=== PATIENT | female | born 1945 | race Caucasian/White ===

== ENCOUNTER 2016-11-08 22:30 | Inpatient (IN) | payer MEDICARE ==
[~2016-11-08] VITALS: Ht 160 cm; Wt 44.5 kg
[~2016-11-08 22:30] MED LIST: ADVIL200 MG PO; ASPIRIN EC81 M1 PO; DYAZIDE 37.5/251 CAP PO; FLORAJEN3 CAPS460 MG PO; IPRAT-ALBUT 0.5-3 ML UPD; LEVAQUIN500 MG PO; LISINOPRIL2.5 MG; LISINOPRIL2.5 MG PO; MIRALAX17 GM PO; MUCINEX600 MG PO; SYMBICORT 16010.2 GM INH
[2016-11-08 23:36] LABS: BASOPHILS 0.2 % (0.0-2.0); EOSINOPHILS 2.6 % (0-7); HEMATOCRIT 38.4 % (36.0-48.0); HEMOGLOBIN 12.5 g/dL (12-16); IMMATURE GRANULOCYTES 0.3 % (0-5); LYMPHOCYTES 16.8 % (15-50); MCH 30.2 pg (26.0-34.0); MCHC 32.6 g/dL (31.0-37.0); MCV 92.8 fL (80.0-100.0); MEAN PLATELET VOLUME 11.1 fL (7.4-10.4); MONOCYTES 4.1 % (2-11); RBC 4.14 10x6/uL (4.00-5.40); RDW 16.2 % (11.5-14.5); WBC 11.2 10x3/uL (4.8-10.8)
[2016-11-08 23:37] LABS: PLATELET COUNT 350 10x3/uL (130-400)
[2016-11-09] LABS: ALBUMIN 3.2 g/dL (3.4-5.0); ANION GAP 15.3 mmol/L (8-16); BILIRUBIN - TOTAL 0.8 mg/dL (0.2-1.3); CALCIUM 8.9 mg/dL (8.5-10.1); CARBON DIOXIDE 25.6 mmol/L (21.0-32.0); CREATININE - SERUM 0.8 mg/dL (0.6-1.3); POTASSIUM - SERUM 3.9 mmol/L (3.5-5.1); TROPONIN-I 0.033 ng/mL (0.000-0.060)
[2016-11-09 00:30] LABS: APPEARANCE CLEAR (CLEAR); BILIRUBIN NEGATIVE (NEGATIVE); COLOR YELLOW (YELLOW); GLUCOSE NEGATIVE (NEGATIVE); KETONE NEGATIVE (NEGATIVE); LEUKOCYTE ESTERASE TRACE (NEGATIVE); NITRITE NEGATIVE (NEGATIVE); PROTEIN NEGATIVE (NEGATIVE); UROBILINOGEN NORMAL (NORMAL)
[2016-11-09 00:43] LABS: BACTERIA FEW /hpf (NONE SEEN); EPITHELIAL CELLS RARE /hpf (0-5); RED CELLS - URINE RARE /hpf (0-5); WHITE CELLS - URINE RARE /hpf (0-5)
[2016-11-09 07:30] VITALS: BP 112/74; BMI 17.7
[2016-11-09 07:54] VITALS: BP 149/94
--- NOTE | 2016-11-09 08:00 | NUR ---
PATIENT GIVEN BREAKFAST TRAY. SHE IS AWAKE AND ALERT, WITHOUT EVIDENCE OF SOB. O2 WORN PER NC. ALTMAN CATHETER PATENT TO BEDISDE DRAINAGE. REQUESTS COFFEE. REPORTED POC TO HER.
--- NOTE | 2016-11-09 09:45 | NUR ---
PATIENT IS SITTING UP IN HER BED. SHE HAS EATEN HER BREAKFAST AND IS WITHOUT COMPLAINTS. FACIAL TISSUE PROVIDED. 1000CC OF CLEAR YELLOW URINE EMPTIED FROM THE COLLECTION BAG.
[2016-11-09 10:55] VITALS: BP 112/74
--- NOTE | 2016-11-09 11:20 | NUR ---
REPORT CALLED TO ROBERT HORTA ON MED 2. PATIENT UNDERSTANDS THAT SHE IS TRANSFERRING TO THE MEDICAL FLOOR. SHE IS CURRENTLY WITHOUT SOB, NO COMPLAINTS OF ANY KIND. IVF INFUSING PER ORDERS. INFUSING BAG SENT WITH HER. BELONGINGS SENT ALONG WELL. TRANSFERRED IN , ACCOMPANIED BY TECH.
--- NOTE | 2016-11-09 12:00 | NUR ---
PATIENT CAME TO ROOM AT 2108, PATIENT IS ALERT AND ORIENTED X3, LUNGS HAVE RUBS IN UPPER LOBES, PATIENT HAS ALTMAN CATH WITH CLEAR YELLOW URINE DRAINING. IV SITE IS IN RIGHT F/A, PATIENT IS ON 2 1/2 L/M PER NC. PATIENT PRESENTS CALM AND SHE IS ABLE TO MAKE NEEDS KNOWN.
--- NOTE | 2016-11-09 13:30 | NUR ---
PATIENT RECEIVED IV LASIX AND SHE IS VOIDING MORE NOW.
[2016-11-09 13:32] LABS: BASOPHILS 0.1 % (0.0-2.0); EOSINOPHILS 0.1 % (0-7); HEMATOCRIT 36.4 % (36.0-48.0); HEMOGLOBIN 11.6 g/dL (12-16); IMMATURE GRANULOCYTES 0.3 % (0-5); LYMPHOCYTES 12.3 % (15-50); MCH 29.7 pg (26.0-34.0); MCHC 31.9 g/dL (31.0-37.0); MCV 93.3 fL (80.0-100.0); MEAN PLATELET VOLUME 11.3 fL (7.4-10.4); MONOCYTES 3.6 % (2-11); NEUTROPHILS 83.6 % (40-80); PLATELET COUNT 321 10x3/uL (130-400); RDW 16.1 % (11.5-14.5)
[2016-11-09 14:26] VITALS: BP 110/98; BMI 17.7
--- NOTE | 2016-11-09 15:30 | NUR ---
PATIENT'S IV SITE IN RIGHT HAND BLEW WE WERE ATTEMPTING TO PUSH SOLUMEDROL, ASKED PATRICK DIRECTOR OF MAINTENANCE IF SHE WILL RESTART IV, D/C'D OLD DRE SINGH INTACT.
[2016-11-09 15:35] VITALS: BP 104/75
--- NOTE | 2016-11-09 16:50 | NUR ---
PATRICK ABLE TO RESITE IV IT IS NOW IN LEFT UPPER ARM.
[2016-11-09 20:00] VITALS: BP 126/81
--- NOTE | 2016-11-09 20:30 | NUR ---
RECEIVED IN BED ELEVATED 50 DEGREES FOR CONFORT. SAID SHE CAN NOT SLEEP BECAUSE OF MEDICATIONS "MAKE ME SHAKE INSIDE." SEE ASSESSMENT FLOW SHEET FOR FURTHER DETAILS. WILL CONTINUE TO MONITOR.
[2016-11-10] VITALS: BP 118/77
[2016-11-10] MEDS ORDERED: PROAIR HFA8.5 GM INH (02:58)
[2016-11-10] MEDS ORDERED: LISINOPRIL2.5 MG PO (03:05)
[2016-11-10] MEDS ORDERED: DYAZIDE 37.5/251 CAP PO (03:06)
[2016-11-10 05:17] LABS: BASOPHILS 0 % (0.0-2.0); EOSINOPHILS 0 % (0-7); HEMOGLOBIN 10.4 g/dL (12-16); IMMATURE GRANULOCYTES 0.2 % (0-5); LYMPHOCYTES 4.5 % (15-50); MCH 29.8 pg (26.0-34.0); MCHC 32.5 g/dL (31.0-37.0); MCV 91.7 fL (80.0-100.0); MEAN PLATELET VOLUME 11.2 fL (7.4-10.4); MONOCYTES 2.3 % (2-11); PLATELET COUNT 295 10x3/uL (130-400); RBC 3.49 10x6/uL (4.00-5.40); RDW 15.9 % (11.5-14.5)
[2016-11-10 05:24] LABS: WBC 11.2 10x3/uL (4.8-10.8)
[2016-11-10 05:40] LABS: ALBUMIN 3.1 g/dL (3.4-5.0); ANION GAP 14.7 mmol/L (8-16); BILIRUBIN - TOTAL 1.48 mg/dL (0.2-1.3); CALCIUM 8.2 mg/dL (8.5-10.1); CARBON DIOXIDE 28.9 mmol/L (21.0-32.0); POTASSIUM - SERUM 3.6 mmol/L (3.5-5.1); PROTEIN - SERUM 6.6 g/dL (6.4-8.2)
[2016-11-10 06:28] VITALS: BP 120/75
--- NOTE | 2016-11-10 07:30 | NUR ---
DOWN FOR CHEST XRAY VIA WHEELCHAIR.
[2016-11-10 08:00] VITALS: BP 98/73
[2016-11-10 10:35] VITALS: Ht 160 cm; Wt 44.5 kg
--- NOTE | 2016-11-10 11:00 | NUR ---
MEDS ADMINISTERED WITHOUT DIFFICULTY PER ORDERS. LAWRENCE BACK HURTS FROM LAYING IN THE BED. LAWRENCE HAS NOT SLEPT IN 3 DAYS. SPOKE WITH NURSE PRACTIONER AND ORDERS RECEIVED.
[2016-11-10 11:46] VITALS: BP 110/69
--- NOTE | 2016-11-10 13:00 | NUR ---
SCD'S ON BILATERAL LE
[2016-11-10 16:00] VITALS: BP 110/56
--- NOTE | 2016-11-10 16:20 | NUR ---
C/O BACK PAIN 11/28. TYLENOL PRN ADMINISTERED PER ORDERS. INFORMED PATIENT ALSO HAS SOMETHING TO HELP HER SLEEP TONIGHT. VERBALIZED UNDERSTANDING.
--- NOTE | 2016-11-10 17:19 | NUR ---
PAIN REASSESSED AT 10/28. SLIGHT RELIEF FROM PRN TYLENOL.
[2016-11-10 20:00] VITALS: BP 117/84
--- NOTE | 2016-11-10 20:30 | NUR ---
RECEIVED REPORT AND CARE ASSUMED. LYING IN BED RESTING QUIETLY. DENIES ANY NEEDS OR DISCOMFORT. SEE ASSESSMENT FOR DETAILS. HS MEDS TAKEN WITHOUT DIFFICULTY. WILL CONTINUE TO MONITOR.
[2016-11-11] VITALS: BP 120/87
[2016-11-11 04:48] LABS: BASOPHILS 0 % (0.0-2.0); EOSINOPHILS 0 % (0-7); HEMOGLOBIN 10.5 g/dL (12-16); IMMATURE GRANULOCYTES 0.2 % (0-5); LYMPHOCYTES 4.7 % (15-50); MCH 29.2 pg (26.0-34.0); MCHC 31.8 g/dL (31.0-37.0); MCV 91.9 fL (80.0-100.0); MEAN PLATELET VOLUME 11.2 fL (7.4-10.4); MONOCYTES 2.5 % (2-11); NEUTROPHILS 92.6 % (40-80); PLATELET COUNT 318 10x3/uL (130-400); RBC 3.59 10x6/uL (4.00-5.40); RDW 15.9 % (11.5-14.5); WBC 12.6 10x3/uL (4.8-10.8)
[2016-11-11 05:16] LABS: ALBUMIN 3.1 g/dL (3.4-5.0); ANION GAP 10.8 mmol/L (8-16); BILIRUBIN - TOTAL 0.7 mg/dL (0.2-1.3); CARBON DIOXIDE 31.2 mmol/L (21.0-32.0); PROTEIN - SERUM 6.5 g/dL (6.4-8.2)
[2016-11-11 05:18] LABS: CREATININE - SERUM 1.3 mg/dL (0.6-1.3)
--- NOTE | 2016-11-11 07:48 | NUR ---
0720-TO XRAY VIA WHEELCHAIR. 0730-RETURNS FROM XRAY. STATES THAT SHE HAS NOT HAD A BM FOR 3 DAYS, PASSING FLATUS. ARVINSTACY DRE SEEN WITH CLEAR YELLOW URINE. ON 2L PER NC. ON HEART MONITOR SHOWING ST, HR 109.LEFT FA SEEN WITH SALINE LOCK.
[2016-11-11 09:30] VITALS: BP 99/54
--- NOTE | 2016-11-11 10:13 | NUR ---
B/P 99/54. PATIENT HAS NOT BEEN THIS LOW (UNDER 100). INFORMED TECH TO PLEASE NOTIFY US IF LOW AGAIN.
--- NOTE | 2016-11-11 10:29 | NUR ---
ALTMAN CATH REMOVED. 250CC OF CLEAR YELLOW URINE IN ALTMAN. PT TOLERATED WELL. INSTRUCTED TO USE THE CALL GARCIA AND WAIT FOR ASSISTANCE WHEN SHE NEEDS TO USE THE RESTROOM. WILL CONTINUE TO MONITOR.
[2016-11-11 12:00] VITALS: BP 111/72
--- NOTE | 2016-11-11 12:36 | NUR ---
B/P LEFT ARM 98/75 B/P RIGHT ARM 111/71 SPOKE WITH SANCHEZ LANTIGUA APN AND WILL HOLD THE 1230 DOSE OF LASIX.
--- NOTE | 2016-11-11 13:49 | CN ---
PATIENT NAME:MARIE MANCUSO MEDICAL RECORD: [id number] : 43 LOCATION:D. D.2108 ADMIT DATE: 11/09/16 ACCOUNT: [id number] CONSULTING PHYSICIAN: NORMA YANES MD REFERRING PHYSICIAN: THERESA WALLER MD DATE OF CONSULTATION: 11/09/2016 CONSULT REQUESTING PHYSICIAN: Theresa Waller MD REASON FOR CONSULTATION: Acute exacerbation of chronic obstructive pulmonary disease, bilateral pleural effusion. HISTORY OF PRESENT ILLNESS: Ms. Mancuso is a 71-year-old female, very well known to me. The patient is not doing well for the last few days. She has shortness of breath. She has orthopnea. She has a PND. She was swollen all over. The patient came into the ER and found out she had bilateral pleural effusion and elevated BNP. She is also coughing and wheezing. Cough is productive of yellow color sputum production, but she denies any fever and chill. REVIEW OF SYSTEMS: Mainly in the history of present illness. PAST MEDICAL HISTORY: 1. COPD. 2. Congestive heart failure with a chronic systolic dysfunction with EF of 30% to 35%. 3. History of asthma. 4. Tobacco dependence syndrome. 5. History of pleural effusion, post-thoracentesis. PAST SURGICAL HISTORY: Hysterectomy. ALLERGIES: There are no known drug allergies. PRESENT MEDICATIONS: On HiWiFi, was reviewed. PERSONAL AND SOCIAL HISTORY: The patient still continues to smoke. She is a nondrinker. FAMILY HISTORY: Noncontributory. PHYSICAL EXAMINATION: GENERAL: Now, the patient is lying comfortably in bed. She is not in acute distress. VITAL SIGNS: Her blood pressure is 110/98, pulse is 108, respiration is 20, temperature is 97.3 and SpO2 is 95% on 2 liter nasal cannula. HEENT: Conjunctivae pink, sclerae nonicteric. NECK: Neck is supple. No JVD. CHEST: The chest excursion is minimal on both sides. There are bilateral crackles. Wheeze on forceful expiration. HEART: Rhythm regular, normal sound. No murmur. ABDOMEN: Abdomen is soft. Bowel sounds present. No hepatosplenomegaly. RECTAL: Deferred. EXTREMITIES: No cyanosis. No clubbing. No pedal edema. SKIN: The skin is warm, normal turgor. CONSULT REPORT [id number] MARIE MANCUSO CENTRAL NERVOUS SYSTEM: The patient is awake and alert. There are no obvious cranial nerve abnormalities. The gait was not tested. LABORATORY DATA: CBC: WBC is 11.2, hemoglobin 12.5, hematocrit is 38.4, and the platelet count 350. Chemistry: Sodium 138, potassium 3.9, BUN is 20, creatinine 0.8. The BNP is 13,674. Troponin is 0.03. Lactic acid was 2. IMPRESSION: 1. Acute exacerbation of chronic obstructive pulmonary disease secondary to #1 tracheobronchitis. 2. Acute exacerbation of congestive heart failure. 3. Congestive heart failure with chronic systolic dysfunction with EF 30% to 35%. 4. Bilateral pleural effusion secondary to congestive heart failure. 5. Tobacco dependence syndrome. RECOMMENDATION: Start her on Levaquin, start methylprednisolone, add Brovana budesonide nebulizer, albuterol/ipratropium nebulizer, continue Lasix IV, methylprednisolone IV, check the labs and chest radiograph in the morning. If the pleural fluid is getting worse, we will consider thoracentesis. Dr. Waller, once again thank you for involving me in the care of Ms. Mancuso. TRANSINT:[id number] Voice Confirmation ID: [id number] DOCUMENT ID: [id number] NORMA YANES MD at 1349 CC: THERESA WALLER MD [id number] DICTATION DATE: 11/09/16 1503 INFO SPECIALIST: 11/10/16 0027 ADM IN [facility] [address] [place] [address]
--- NOTE | 2016-11-11 16:22 | NUR ---
1617- 24G IV PLACED IN RIGHT ARM. 1 STICK. DATED. PT TOLERATED WELL. 1619- LEFT ARM IV INFILTRATED. REMOVED AND CATH TIP INTACT. 2X2 DRESSING PLACED. PT TOLERATED WELL.
--- NOTE | 2016-11-11 18:02 | NUR ---
LEVAQUIN STILL INFUSING SLOWLY TO RIGHT FA WITHOUT PROBLEMS. THIS IS A 24 G. TO RIGHT FA. DENIES NEEDS. WILL CONTINUE TO MONITOR.
[2016-11-11 21:18] VITALS: BP 109/69
[2016-11-12 00:23] VITALS: BP 109/67
--- NOTE | 2016-11-12 00:44 | NUR ---
ASSESSED AT THE BEGINNNING OF THE SHIFT. PT IS ALERT AND ORIENTED, ABLE TO VERBALIZE NEEDS. HER ALTMAN WAS DC'S AND SHE IS NOW GOING TO THE BATHROOM WITH ASSIST. SHE SHAS TELEMATRY IN PLACE. WE ARE ASSITING HER WITH BATHROOM BUT SHE IS ABLE TO TURN AND REPOSITION HERSELF. WE HELD HER MIDNIGHT LASIX AND WILL GIVE IT TO HER IN THE MORNING SO SHE WILL NOT BE UP ALL NIGHT PEEING. THE BED IS LOW, RAILS UP X'S 2 WITH THE CALL LIGHT AT HAND.
[2016-11-12 04:25] VITALS: BP 108/70
[2016-11-12 07:00] VITALS: BP 96/69
--- NOTE | 2016-11-12 07:30 | NUR ---
0712-AM ROUNDING DONE WITH PATIENT IN RESTROOM VOIDING PAST IV LASIX GIVEN, SHE STATES. UPDRAFT TREATMENT BEING DONE. ON HEART MONITOR SHWOING SR, HR 92. RIGHT FA SEEN WITH SALINE LOCK. ON 2L PER NC. ON EP, NO LAB VALUES BACK YET, WILL CONTINUE TO WATCH FOR THEM.
--- NOTE | 2016-11-12 08:50 | NUR ---
CONTAINER OF PRUNE JUICE GIVEN TO PATIENT.
[2016-11-12 10:15] LABS: BASOPHILS 0 % (0.0-2.0); EOSINOPHILS 0 % (0-7); HEMATOCRIT 34.1 % (36.0-48.0); IMMATURE GRANULOCYTES 0.2 % (0-5); LYMPHOCYTES 4.9 % (15-50); MCHC 32.3 g/dL (31.0-37.0); MCV 92.9 fL (80.0-100.0); MEAN PLATELET VOLUME 11.1 fL (7.4-10.4); MONOCYTES 3.4 % (2-11); NEUTROPHILS 91.5 % (40-80); PLATELET COUNT 303 10x3/uL (130-400); RBC 3.67 10x6/uL (4.00-5.40); RDW 15.8 % (11.5-14.5); WBC 10.4 10x3/uL (4.8-10.8)
[2016-11-12 10:36] LABS: ALBUMIN 3.4 g/dL (3.4-5.0); ANION GAP 16.4 mmol/L (8-16); BILIRUBIN - TOTAL 0.7 mg/dL (0.2-1.3); CALCIUM 9.4 mg/dL (8.5-10.1); CARBON DIOXIDE 27.8 mmol/L (21.0-32.0); CREATININE - SERUM 1.2 mg/dL (0.6-1.3); MAGNESIUM - SERUM 1.9 mg/dL (1.8-2.4); PHOSPHOROUS 3.9 mg/dL (2.5-4.9); POTASSIUM - SERUM 4.2 mmol/L (3.5-5.1); PROTEIN - SERUM 6.6 g/dL (6.4-8.2)
[2016-11-12 12:00] VITALS: BP 118/58
--- NOTE | 2016-11-12 12:32 | NUR ---
LAB VALUES AND COMPUTER SYSTEM BACK UP, EP LABS ARE GOOD.
--- NOTE | 2016-11-12 14:10 | NUR ---
DENIES NEEDS AT PRESENT TIME. WILL CONTINUE TO MONITOR.
--- NOTE | 2016-11-12 15:51 | NUR ---
IV SITE IS STARTING TO INFILTRATE. LEVAQUIN WAS INFUSING AT 50 CC/HR. MEDICATION STOPPED AND WILL RE-SITE IV.
[2016-11-12 16:00] VITALS: BP 106/72
--- NOTE | 2016-11-12 16:04 | NUR ---
IV RESITED TO INNER LEFT FOREARM WITH 24 G X 1 STICK.
--- NOTE | 2016-11-12 16:38 | NUR ---
CALLED TO ROOM WITH COMPLAINT OF LEVAQUIN "ITCHING". LEFT INNER ARM IS RED, NOT SWOLLEN. MEDICATION STOPPED. DR YANES ON FLOOR AND LOOKS AT ARM. HE SAYS TO STOP THE MEDICATION FOR NOW. ICE PACK APPLIED, WILL RE-ASSESS ARM SHORTLY.
--- NOTE | 2016-11-12 17:50 | NUR ---
PATIENT'S LEFT INNER ARM FROM [facility] IS NOW NORMAL PINK IN COLOR.
--- NOTE | 2016-11-12 20:10 | NUR ---
PT RECEIVED IN BED WITH EYES OPEN WATHING TV. NO CONCERNS NOTED WITH NO SIGN/SYMPTOMS OF DISTRESS NOTED AT THIS TIME. IV PATENT TO LEFT WRIST. CALL LIGHT IN REACH.
[2016-11-12 20:47] VITALS: BP 111/74
[2016-11-13 00:24] VITALS: BP 83/56
[2016-11-13 04:39] VITALS: BP 90/54
[2016-11-13 05:50] LABS: BASOPHILS 0 % (0.0-2.0); EOSINOPHILS 0 % (0-7); HEMATOCRIT 33.7 % (36.0-48.0); HEMOGLOBIN 10.7 g/dL (12-16); IMMATURE GRANULOCYTES 0.2 % (0-5); LYMPHOCYTES 8.9 % (15-50); MCH 29.2 pg (26.0-34.0); MCHC 31.8 g/dL (31.0-37.0); MCV 91.8 fL (80.0-100.0); MEAN PLATELET VOLUME 11.4 fL (7.4-10.4); MONOCYTES 4.7 % (2-11); NEUTROPHILS 86.2 % (40-80); PLATELET COUNT 316 10x3/uL (130-400); RBC 3.67 10x6/uL (4.00-5.40); RDW 15.2 % (11.5-14.5); WBC 8.4 10x3/uL (4.8-10.8)
[2016-11-13 06:08] LABS: ALBUMIN 3.1 g/dL (3.4-5.0); ANION GAP 10.6 mmol/L (8-16); BILIRUBIN - TOTAL 0.79 mg/dL (0.2-1.3); CALCIUM 8.8 mg/dL (8.5-10.1); CARBON DIOXIDE 31.8 mmol/L (21.0-32.0); MAGNESIUM - SERUM 2.1 mg/dL (1.8-2.4); PHOSPHOROUS 4.5 mg/dL (2.5-4.9); POTASSIUM - SERUM 4.4 mmol/L (3.5-5.1); PROTEIN - SERUM 6.4 g/dL (6.4-8.2)
--- NOTE | 2016-11-13 06:24 | NUR ---
PT IN BED WITH EYES CLOSED AND CHEST RISING. EASILY AROUSED TO VERBAL STIMULI. RECEIVED MEDICATIONS PER MAR WITHOUT DIFFICULTY. CALL LIGHT IN REACH
--- NOTE | 2016-11-13 07:36 | NUR ---
0710-AM ROUNDING DONE WITH PATIENT COMPLAINING OF SLIGHT DIZZINESS WHEN SHE JUST GOT UP TO USE RESTROOM. ON 2L PER NC. ON HEART MONITOR SHOWING SR, HR 88. LEFT INNER FA SEEN WITH SALINE LOCK, NO REDNESS SEEN TO SKIN. ON EP, LAB VALUES ARE NORMAL. ASKED PATIENT TO PLEASE USE CALL LIGHT FOR ASSIST TO RESTROOM UNTIL DIZZINESS PASSES. STATES TO UNDERSTANDING. WILL CONTINUE TO MONITOR.
--- NOTE | 2016-11-13 10:16 | NUR ---
TO RADIOLOGY AND BACK VIA WHEELCHAIR.
--- NOTE | 2016-11-13 10:27 | NUR ---
PATIENT STILL WITH NO BM PAST PRUNE JUICE GIVEN YESTERDAY. PASSING FLATUS. WARM PRUNE JUICE AND LEMON KASHIA COCKTAIL GIVEN TO PATIENT. INSTRUCTED TO NOTIFY US IF BM RESULTS
[2016-11-13 13:01] VITALS: BP 98/55
[2016-11-13 16:39] VITALS: BP 97/43
--- NOTE | 2016-11-13 17:45 | NUR ---
DENIES NEEDS AT PRESENT TIME. STILL NO BM PAST HOT PRUNE JUICE AND LEMON [place] [employer] [place]. WILL CONTINUE TO MONITOR. SHE IS PASSING SOME FLATUS.
--- NOTE | 2016-11-13 19:54 | NUR ---
PATIENT RECEIVING BREATHING TREATMENT AT THIS TIME. DENIES NEEDS, WILL CONTINUE TO MONITOR.
[2016-11-13 20:00] VITALS: BP 104/61
--- NOTE | 2016-11-14 01:06 | NUR ---
SLEEPING, BED IS LOW, SRX2, CALL LIGHT IN REACH, WILL CONTINUE TO MONITOR
[2016-11-14 04:00] VITALS: BP 98/65
[2016-11-14 05:44] LABS: BASOPHILS 0.1 % (0.0-2.0); EOSINOPHILS 1.9 % (0-7); HEMATOCRIT 38.4 % (36.0-48.0); HEMOGLOBIN 12.3 g/dL (12-16); IMMATURE GRANULOCYTES 0.5 % (0-5); LYMPHOCYTES 26.1 % (15-50); MCH 29.4 pg (26.0-34.0); MCV 91.6 fL (80.0-100.0); MEAN PLATELET VOLUME 11.6 fL (7.4-10.4); MONOCYTES 7.6 % (2-11); NEUTROPHILS 63.8 % (40-80); PLATELET COUNT 363 10x3/uL (130-400); RBC 4.19 10x6/uL (4.00-5.40); RDW 15.1 % (11.5-14.5)
[2016-11-14 05:57] LABS: WBC 11.9 10x3/uL (4.8-10.8)
[2016-11-14 06:09] LABS: ALBUMIN 3.1 g/dL (3.4-5.0); BILIRUBIN - TOTAL 0.65 mg/dL (0.2-1.3); CALCIUM 8.8 mg/dL (8.5-10.1); CARBON DIOXIDE 33.2 mmol/L (21.0-32.0); MAGNESIUM - SERUM 2.4 mg/dL (1.8-2.4); PHOSPHOROUS 4.2 mg/dL (2.5-4.9); POTASSIUM - SERUM 4.2 mmol/L (3.5-5.1); PROTEIN - SERUM 6.7 g/dL (6.4-8.2)
[2016-11-14 08:15] VITALS: BP 104/63
--- NOTE | 2016-11-14 08:15 | NUR ---
PT RESTING IN BED EATING BREAKFAST CALL LIGHT IN REACH WILL MONITER
--- NOTE | 2016-11-14 09:53 | NUR ---
RESP UL ON . CALL LIGHT IN REACH. NO NEEDS VOICED AT THIS TIME. WILL CONT. PLAN OF CARE.
--- NOTE | 2016-11-14 12:20 | NUR ---
PT UP IN BEDSIDE CHAIR EATING LUNCH NO PROBLEMS CALL LIGHT IN REACH WILL MONITER
[2016-11-14 12:24] VITALS: BP 96/60
[2016-11-14 16:05] VITALS: BP 102/60
--- NOTE | 2016-11-14 19:35 | NUR ---
RECEIVED REPORT, 022L, IV-LFA-SL, [id number], PT IS WATCHING TV, DENIES ANY NEEDS, CALL LIGHT IN REACH, WILL CONTINUE TO MONITOR
[2016-11-14 20:00] VITALS: BP 102/61
[2016-11-15] VITALS (7 sets, daily range): BP systolic 84–117; BP diastolic 45–78
--- NOTE | 2016-11-15 00:53 | NUR ---
STOCK SORTER AT BEDSIDE, NEEDS ADDRESSED AT THIS TIME. CALL LIGHT IN REACH. WILL CONT TO MONITOR.
--- NOTE | 2016-11-15 05:45 | NUR ---
PT IS ALERT. NO SS OF DISTRESS AT THIS TIME. WILL CONTINUE TO MONITOR.
[2016-11-15 05:56] LABS: BASOPHILS 0.1 % (0.0-2.0); EOSINOPHILS 2.6 % (0-7); LYMPHOCYTES 30.5 % (15-50); MCHC 31.7 g/dL (31.0-37.0); MCV 91.5 fL (80.0-100.0); MEAN PLATELET VOLUME 11.5 fL (7.4-10.4); MONOCYTES 5.2 % (2-11); NEUTROPHILS 60.6 % (40-80); PLATELET COUNT 354 10x3/uL (130-400); RBC 4.48 10x6/uL (4.00-5.40); RDW 15.1 % (11.5-14.5)
[2016-11-15 06:16] LABS: ANION GAP 8.9 mmol/L (8-16); CALCIUM 9.4 mg/dL (8.5-10.1); CARBON DIOXIDE 33.7 mmol/L (21.0-32.0); MAGNESIUM - SERUM 2.2 mg/dL (1.8-2.4); PHOSPHOROUS 4.7 mg/dL (2.5-4.9); POTASSIUM - SERUM 3.6 mmol/L (3.5-5.1)
--- NOTE | 2016-11-15 07:08 | NUR ---
PT IS ALERT. ASSESSMENT DONE PER FLOWSHEET. NO OTHER NEEDS AT THIS TIME. WILL CONTINUE TO MONITOR.
--- NOTE | 2016-11-15 18:01 | NUR ---
PATIENT RECEIVED TO ROOM 1215 IN A , ACCOMPANIED BY PRIMARY CARE NURSE. SHE IS ALERT AND ORIENTED, WEARING O2 PER NC PER REQUEST. O2 SAT IS 96%. SHE DENIES NEEDS, FRESH ICE WATER PROVIDED. CALL LIGHT IS WITHIN HER REACH.
--- NOTE | 2016-11-15 18:39 | NUR ---
PATIENT IS RESTING IN HER BED WITHOUT C/O ANY KIND. HOB UP 60 DEGREES. WATCHING TV.
--- NOTE | 2016-11-15 19:30 | NUR ---
ASSESSMENT PER FLOW SHEET, VS OBTAINED PER MARGOTH TELLO RN, SALINE LOCK IN LEFT FA INTACT WITH NO REDNESS OR EDEMA, PT DENIES FLATUS, NO BM AND VOIDING BY SELF WITH NO DIFFICULTY, PT DENIES PAIN, REQUESTED AND SERVED SVEN CRACKERS AND PEANUT BUTTER, DENIES FURTHER NEEDS
--- NOTE | 2016-11-15 20:07 | NUR ---
PT WATCHING TV, DENIES NEEDS OR PAIN AT THIS TIME
--- NOTE | 2016-11-15 21:17 | NUR ---
ADM 2100 MEDS PO PER MD ORDERS WITH FRESH H20 SERVED PER RESP THERAPIST, PT DENIES NEEDS OR PAIN AT THIS TIME
--- NOTE | 2016-11-15 21:18 | NUR ---
RESP TO ROOM FOR TREATMENT
--- NOTE | 2016-11-15 22:34 | NUR ---
PT RESTING WITH EYES CLOSED, RESP QUIET, NO DISTRESS NOTED, LEFT UNDISTURBED AT THIS TIME
--- NOTE | 2016-11-16 00:12 | NUR ---
PT RESTING WITH EYES CLOSED, RESP QUIET, NO DISTRESS NOTED, LEFT UNDISTURBED AT THIS TIME
--- NOTE | 2016-11-16 02:11 | NUR ---
PT RESTING WITH EYES CLOSED, RESP QUIET, NO DISTRESS NOTED, LEFT UNDISTURBED AT THIS TIME
--- NOTE | 2016-11-16 04:10 | NUR ---
PT RESTING WITH EYES CLOSED, RESP QUIET, NO DISTRESS NOTED, LEFT UNDISTURBED AT THIS TIME
--- NOTE | 2016-11-16 06:28 | NUR ---
PT RESTING WITH EYES CLOSED, AROUSES TO SOFT VERBAL STIMULATION, ADM 0600 MED PO PER MD ORDERS, PT UP TO BEDSIDE SCALE, PT TO BR, VOIDED BY SELF WITH NO DIFFICULTY, PT BACK TO BED, PT REQUESTED COFFEE, INFORMED PT THAT I WILL MAKE SOME AND BRING TO HER, PT DENIES FURTHER NEEDS
--- NOTE | 2016-11-16 07:00 | NUR ---
SHIFT REPORT TO DAY SHIFT
[2016-11-16 07:59] VITALS: BP 96/62
--- NOTE | 2016-11-16 08:00 | NUR ---
REMAINS STABLE IN BED, SLEEPING AT INTERVALS WITH O2 CONT AT 2L/MIN PER NASAL CANNULA.
--- NOTE | 2016-11-16 09:13 | NUR ---
SPOKE WITH SANCHEZ LANTIGUA APN RE BP AND CONSTIPATION. NEW ORDERS NOTED.;
--- NOTE | 2016-11-16 09:55 | NUR ---
DULCOLAX 10MG SUPPOSITORY 2 PER RECTUM ORDERED FOR NO BM BY PATIENT REPORT, FOR 5-6 DAYS, WHICH PATIENT SAYS IS NORMAL FOR HER. PAIENT REMAINS ON LEFT SIDE AFTER SUPPOSITORY. SCD SLEEVES APPLIED
--- NOTE | 2016-11-16 10:10 | NUR ---
Nutrition Follow Up: Pt reported that her appetite is good. She requested prunes for constipation. RD explained that we did not have prunes but did have prune juice. Pt refused stating that she did not like prune juice. Pt said that she liked chocolate Ensure - will order TID. Pt reported that she has lost 5-10# in the past few months. Labs noted - Na low; BUN, Glucose elevated. Meds noted including Lasix, Miralax, Prednisone. Wt loss 1# since admit. +BM 11/14/16. Rec continue current diet. Will order Ensure TID. RD following.
[2016-11-16 11:50] VITALS: BP 115/76
--- NOTE | 2016-11-16 11:50 | NUR ---
SPOKE W/SANCHEZ LANTGIUA APN RE PATIENT REQUEST FOR ENEMA AND NO LAB ORDERED FOR THIS MORNING. NEW ORDERS NOTED FOR FLEET ENEMA. PATIENT REQUESTS WAIT UNTIL AFTER LUNCH
--- NOTE | 2016-11-16 12:30 | NUR ---
FLEET ENEMA PER RECTUM WHILE LYING ON LEFT SIDE TONY WELL, RETAINING ONLY A FEW MINUTES BEFORE FEELING STRONG URGE TO EVACUATE. ASSISTED TO BATHROOM.
--- NOTE | 2016-11-16 12:40 | NUR ---
SANCHEZ LANTIGUARN AT BEDSIDE FOR ROUNDS AND STATES SHE WILL SEE PATIENT LATER PATIENT REMAINS IN BATHROOM
[2016-11-16] MEDS ORDERED: OMNICEF300 MG PO (12:51)
--- NOTE | 2016-11-16 13:00 | NUR ---
reports good results from enema. returned to bed. states she wants to take shower later. o2 resumed at 2 liter/min per nasal cannula. remains stable
[2016-11-16] MEDS ORDERED: MUCINEX600 MG PO (13:02)
[2016-11-16] MEDS ORDERED: LASIX20 MG PO (13:02)
[2016-11-16] MEDS ORDERED: K-TAB10 MEQ PO (13:03)
[2016-11-16] MEDS ORDERED: PREDNISONE10 MG PO (13:04)
[2016-11-16] MEDS ORDERED: ADVAIR 250/501 DISK INH (13:05)
[2016-11-16] MEDS ORDERED: IPRAT-ALBUT 0.5-3 ML UPD (13:08)
--- NOTE | 2016-11-16 13:30 | NUR ---
DR LEIVA HERE AT BEDSIDE. NEW ORDERS NOTED
--- NOTE | 2016-11-16 13:40 | NUR ---
Is the patient Alert and Oriented? Yes 0 * How many steps to enter\exit or inside your home? 2 0 * PCP DR HU 0 * Pharmacy [facility] ON [facility] 0 * Preadmission Environment Home with Family 0 * ADLs Independent 0 * Equipment Oxygen 0 * Other Equipment PATIENT HAS O2 PORTABLE AND CONCENTRATOR SHE THINKS IT IS SUPPLIED B6Y [employer] 0 * List name and contact numbers for known caregivers / representatives who currently or will assist patient after discharge: DAUGHTER: NIC [phone] 0 * Community resources currently utilized None 0 * Additional services required to return to the preadmission environment? No 0 * Can the patient safely return to the preadmission environment? Yes 0 * Has this patient been hospitalized within the prior 30 days at any hospital? No PATIENT IS AWAKE AND ALERT. SHE STATES THAT SHE LIVES AT HOME WITH HER DAUGHTER, NIC. PATIENT STATES THAT NIC WILL DRIVE HER HOME AT DISCHARGE. PATIENT GETS HER MEDS FROM [facility] ON [facility]. SHE HAS O2 CONCENTRATOR AND PORTABLE FROM [employer]. PATIENT DENIES HOME HEALTH CARE. SHE STATES THERE ARE 2 STEPS TO ENTER HER HOME. NO DISCHARGE NEEDS AT THIS TIME.
--- NOTE | 2016-11-16 14:00 | NUR ---
DR CRUZ HERE AT BEDSIDE.
--- NOTE | 2016-11-16 14:03 | NUR ---
DC ORDERS NOTED. [facility] REP BLACK NOTIFIED OF CONSULT; FAXED FACE SHEET, H&P AND LAST 2 MD NOTES AVAILABLE (FROM 11.15.16). DR PRYOR PAGED TO FIND OUT WHEN HE WANTS TO SEE PATIENT AGAIN.
--- NOTE | 2016-11-16 14:04 | NUR ---
VARGAS BLACK STATES THE AGENCY NAMED SAME, WILL SEE PATIENT THEN SCHEDULE APPT AT OFFICE FOR PATIENT TO SEE DR HU.
--- NOTE | 2016-11-16 14:45 | NUR ---
DISCHARGE INSTRUCTIONS /MEDS REVIEWED WITH PATIENT AND HER DAUGHTER. SALINE LOCK REMOVED FROM LEFT FOREARM; HELD 3 MIN PRESSURE AT SITE BEFORE BLEEDING WOULD STOP; STERILE BANDAID APPLIED. TONY WELL. TELEMETRY REMOVED. NO SIGNS OF COMPLICATIONS NOTED OR REPORTED. O2 REMOVED. PATIENT STATES SHE LEAVES HOME WITHOUT O2 AND CAN TOLERATE TRIP HOME WITHOUT O2. REMINDED TO WEIGH DAILY AND CALL MD IF 2 POUNDS OR GREATER GAIN IN 1 DAY OR IF DYSPNEA/COUGH INCREASES
--- NOTE | 2016-11-16 14:55 | NUR ---
DISCHARGED IN STABLE CONDITION, PER , TO DTR PRIVATE AUTO.
--- NOTE | 2016-11-18 14:54 | EC ---
PATIENT:MARIE MANCUSO DATE OF SERVICE: 11/09/16 SEX: F MEDICAL RECORD: [id number] DATE OF : [birth year] [facility] AGE OF PATIENT: 71 ADMISSION DATE: 11/09/16 REFERRING PHYSICIAN: INTERPRETING PHYSICIAN: SAM HERRERA M.D. ECHOCARDIOGRAM REPORT ECHO CHARGES 4 ECHO COMPLETE CLINICAL DIAGNOSIS: DYSPNEA HX ASTHMA/COPD/CHF AND DE ECHOCARDIOGRAPHIC MEASUREMENTS (adult normal given) AC root (d.<3.7cm) 3.8 LV Septum d (<1.2 cm> 1.1 Valve Excursion 1.9 LV Septum (systole) 1.2 Left Atria (s.<4.0cm> 4.4 LVPW d(<1.2cm) 1.2 RV (d.<2.3cm) 3.4 LVPW (sytole) 1.3 LV diastole(<5.6CM) 6.1 MV E-F(>70mm/sec) LV systole 5.1 LVOT Diameter 1.6 MV exc.(>10mm) 1.4 Est.ejection fraction (50-75%) Pericardial Effusion N DOPPLER: LVIT A 58.0 E 80.0 LA RVSP 38 LVOT 79 AOP1/2T Asc. Ao 127 RVOT 51 RA PA 86 AV Gradient Peak 6.42 AV Mean 3.24 AV Area 1.6 MV Gradient Peak 4.02 MV Mean 1.76 MV Area COMMENTS: Yard Specialist: Benjamin GARDUNO Can Dryer:2 Dr. Herrera TAPE# PACS DATE OF SERVICE: 11/10/2016 REFERRING PHYSICIAN: Kilo Vanessa MD INDICATION: Dyspnea. DESCRIPTION: Left ventricle is mildly dilated. The inferior wall is hypokinetic. Estimated ejection fraction is in the order of 35% to 40%. Mitral valve is structurally normal. There is mild to moderate regurgitation noted. Left atrium is moderately dilated. The aortic valve is trileaflet. Leaflets ECHOCARDIOGRAM REPORT [id number] MARIE MANCUSO are thickened, but there is no stenosis seen. Right ventricle is mildly dilated. Tricuspid valve is structurally normal. There is mild regurgitation noted. Right atrium is normal size. There is no pericardial effusion seen. IMPRESSION: 1. Moderate left ventricular dysfunction with ejection fraction of 35% to 40%. 2. Mild to moderate mitral regurgitation. 3. Mild tricuspid regurgitation. TRANSINT:[id number] Voice Confirmation ID: [id number] DOCUMENT ID: [id number] SAM HERRERA M.D. at 1454 CC: [id number] DICTATION DATE: 11/11/16 1319 GENERAL MANAGER FARM: 11/11/16 1523 DIS IN 11/16/16 [place] [id number] [place] [id number]
== END 2016-11-16 14:55 | disposition home or self-care (01) | DRG 291 ==
LOC: D.ER 22:30 → D.M2 11-09 00:22 → D.M3 11-09 00:22 → D.M2 11-09 12:04 → D.WS 11-15 17:51
PROVIDERS: Family Medicine; Internal Medicine Pulmonary Disease; ADMIT Family Medicine
DX: I50.23 Acute on chronic systolic (congestive) heart failure (principal); E43 Unspecified severe protein-calorie malnutrition; J18.9 Pneumonia, unspecified organism; J44.0 Chronic obstructive pulmonary disease with (acute) lower respiratory infection; I42.9 Cardiomyopathy, unspecified; F17.203 Nicotine dependence unspecified, with withdrawal; Z68.1 Body mass index [BMI] 19.9 or less, adult; J98.11 Atelectasis; J44.1 Chronic obstructive pulmonary disease with (acute) exacerbation; R94.31 Abnormal electrocardiogram [ECG] [EKG]; R04.0 Epistaxis; K59.00 Constipation, unspecified; I08.1 Rheumatic disorders of both mitral and tricuspid valves

== ENCOUNTER 2016-11-26 18:41 | Inpatient (IN) | payer MEDICARE ==
[~2016-11-26] VITALS: Ht 160 cm; Wt 72.6 kg
--- NOTE | ~2016-11-26 | CN ---
PATIENT NAME:MARIE MANCUSO MEDICAL RECORD: [id number] : 43 LOCATION:D. D.2109 ADMIT DATE: 11/26/16 ACCOUNT: [id number] CONSULTING PHYSICIAN: RICH MOHR MD REFERRING PHYSICIAN: BRENDAN REYES MD DATE OF CONSULTATION: 11/27/2016 PREOPERATIVE DIAGNOSIS: My rectum fell out. HISTORY OF PRESENT ILLNESS: I saw the patient in the Emergency Room. She has full thickness rectal prolapse. It has an intussusception about 6 inches. I am going to plan for an Altemeier procedure, possible rectopexy, possible open colectomy. The risks, possible complications and alternatives to procedure were explained to the patient. She elects to proceed. Symptoms came on suddenly. She was training to have a bowel movement. This is the first time this has ever happened to her. PAST MEDICAL AND SURGICAL HISTORY: Coronary artery disease, myocardial infarction, congestive heart failure, gastroesophageal reflux disease, COPD and asthma. Tonsillectomy and adenoidectomy. Right pleural effusion and left pleural effusion in the past, she is on oxygen at home. SOCIAL HISTORY: She is a smoker. I have advised her to quit smoking. HOME MEDICINES: Include albuterol, Mucinex, DuoNeb, lisinopril, hydrochlorothiazide, prednisone, potassium chloride, aspirin, Lasix. ALLERGIES: No known drug allergies. REVIEW OF SYSTEMS: Negative for diabetes or thyroid problems. Negative for CVA or seizures. No abdominal pain. Positive for constipation. No headache, no agitation, no bleeding disorder. No frequent infections. PHYSICAL EXAMINATION: GENERAL: The patient does not appear acutely ill. She does appear chronically ill. VITAL SIGNS: Reviewed. The entire physical examination was performed in the presence of a female nurse. HEAD: External ears appear normal. EYES: Extraocular movements are intact. NECK: Trachea is midline. CHEST: No intercostal retractions. PULMONARY: Nonlabored, no stridor. ABDOMEN: Nontender. EXTREMITIES: No peripheral cyanosis. INTEGUMENT: No rash, no ulcerations. PSYCHIATRIC: Normal affect. BACK: Mild thoracic kyphosis. LYMPHATICS: No lymphangitic streaking of the exposed extremities. IMPRESSION: Full thickness rectal prolapse. PLAN: As described above. We discussed the risks, possible complications, and alternatives to the procedure including the possible need for a colostomy. CONSULT REPORT [id number] MARIE MANCUSO TRANSINT:[id number] Voice Confirmation ID: [id number] DOCUMENT ID: [id number] RICH MOHR MD CC: ANNA ACHARYA PARCHMAN, ANNA J MD and JOZEF HU [id number] DICTATION DATE: 11/27/16 145 DENTAL CHAIRSIDE ASSISTANT: 11/27/16 1608 ADM IN [place] [address] [place] [address]
--- NOTE | ~2016-11-26 | OP ---
PATIENT NAME: MARIE MANCUSO MEDICAL RECORD: [id number] :43 LOCATION:D.M2 D.2109 ADMISSION DATE:11/26/16 SURGEON: RICH MOHR MD DATE OF OPERATION: 11/27/2016 PREOPERATIVE DIAGNOSIS: Full thickness rectal prolapse. POSTOPERATIVE DIAGNOSIS: Full thickness rectal prolapse. PROCEDURES: Altemeier procedure (perineal proctosigmoidectomy). SURGEON: Rich Mohr MD. ENTERTAINMENT REPORTER: None. BLOOD LOSS: Minimal. ANESTHESIA: General. COMPLICATIONS: None. The risks, possible complications and alternatives to procedure were explained to the patient. She elects to proceed. OPERATIVE COURSE: The patient was conveyed to the operating room electively on 11/27/2016. General anesthesia was induced by anesthesia staff. The patient was placed in the lithotomy position. The anus and perianal areas were sterilely prepped and draped. A [place] retractor was placed. I was able to get the rectum to prolapse. A mucosal incision was accomplished with the Bovie just distal to the dentate line. I dissected down through the anterior portion of the rectum and I placed a stay suture there. I then completed my dissection around and I placed lateral sutures on the anus. I then placed another 0 Vicryl posteriorly after completing the circumferential dissection. I swept the vagina. There was no damage to the vagina during the operation. The rectal stalk were taken down with the Harmonic scalpel. I was able to deliver the rectum, likely most of the sigmoid colon. The mesocolon to the sigmoid colon was taken down with the Harmonic scalpel. I then split the rectum and sigmoid colon up to the front. I tied the apex of this incision, which was at 12:00 o' clock to the 12:00 o' clock stay suture. I then completed my division of the sigmoid colon. I used the stay sutures to suture the full thickness colon to the anus. Between the sutures, additional 0 Vicryl sutures were used to accomplish the anastomosis. I then released tension by cutting the sutures. U-shaped anal retractors were placed. The back 2/3 of the anastomosis was over run with a running horizontal mattress 4-0 Monocryl. I examined the vagina for any damage and there was no damage to the vagina. The anastomosis appeared to be intact. I was able to visualize nice pink colonic mucosal proximal to the anastomosis. I irrigated then the vagina with normal saline. I irrigated the rectum and anus with normal saline. Gelfoam was applied within the anus and rectum. A combination of sterile preparation and Marcaine were used to infiltrate the perianal tissues. A topical anesthetic cream was applied to the external hemorrhoids. The patient was then extubated and conveyed to post-anesthesia care unit where she was in stable condition. OPERATIVE REPORT [id number] JAMEEMARIE LUNA TRANSINT:[id number] Voice Confirmation ID: [id number] DOCUMENT ID: [id number] RICH MOHR MD CC: BRENDAN REYES MD and JOZEF HU MD [id number] DICTATION DATE: 11/27/16 172 TAR POT MAN: 11/27/16 1843 ADM IN [place] [address] [place] [address]
[~2016-11-26 18:41] MED LIST changes: +ADVAIR 250/501 DISK INH; +K-TAB10 MEQ PO; +LASIX20 MG PO; +OMNICEF300 MG PO; +PREDNISONE10 MG PO; +PROAIR HFA8.5 GM INH
[2016-11-26 21:02] LABS: BASOPHILS 0.1 % (0.0-2.0); EOSINOPHILS 0.5 % (0-7); HEMATOCRIT 38.1 % (36.0-48.0); HEMOGLOBIN 12.7 g/dL (12-16); IMMATURE GRANULOCYTES 0.5 % (0-5); LYMPHOCYTES 8.1 % (15-50); MCH 30.1 pg (26.0-34.0); MCHC 33.3 g/dL (31.0-37.0); MCV 90.3 fL (80.0-100.0); MONOCYTES 4.6 % (2-11); NEUTROPHILS 86.2 % (40-80); PLATELET COUNT 317 10x3/uL (130-400); RBC 4.22 10x6/uL (4.00-5.40); RDW 15.5 % (11.5-14.5); WBC 13.3 10x3/uL (4.8-10.8)
[2016-11-26 21:15] LABS: ALBUMIN 3.6 g/dL (3.4-5.0); ANION GAP 14.8 mmol/L (8-16); BILIRUBIN - TOTAL 0.7 mg/dL (0.2-1.3); CALCIUM 8.8 mg/dL (8.5-10.1); CARBON DIOXIDE 25.1 mmol/L (21.0-32.0); CREATININE - SERUM 1.1 mg/dL (0.6-1.3); POTASSIUM - SERUM 3.9 mmol/L (3.5-5.1); PROTEIN - SERUM 7.3 g/dL (6.4-8.2)
--- NOTE | 2016-11-26 23:34 | NUR ---
RECEIVED TO 2108 VIA STRETCHER FROM ER, AAOX3, SKIN WARM AND DRY, RESP UNLABORED, IV PATENT TO LEFT FOREARM, NO DISTRESS NOTED
[2016-11-27 00:38] VITALS: BP 109/63
[2016-11-27 01:24] VITALS: BMI 15.8
[2016-11-27 04:25] VITALS: BP 135/66
[2016-11-27 05:48] LABS: BASOPHILS 0.2 % (0.0-2.0); EOSINOPHILS 1.5 % (0-7); IMMATURE GRANULOCYTES 0.5 % (0-5); LYMPHOCYTES 19.8 % (15-50); MCH 29.5 pg (26.0-34.0); MCHC 32.5 g/dL (31.0-37.0); MCV 90.7 fL (80.0-100.0); MONOCYTES 6.6 % (2-11); NEUTROPHILS 71.4 % (40-80); PLATELET COUNT 321 10x3/uL (130-400); RBC 4.41 10x6/uL (4.00-5.40); RDW 15.3 % (11.5-14.5); WBC 13.1 10x3/uL (4.8-10.8)
[2016-11-27 06:14] LABS: ALBUMIN 3.4 g/dL (3.4-5.0); ANION GAP 12.2 mmol/L (8-16); BILIRUBIN - TOTAL 1.1 mg/dL (0.2-1.3); CALCIUM 9.2 mg/dL (8.5-10.1); CARBON DIOXIDE 29.4 mmol/L (21.0-32.0); MAGNESIUM - SERUM 2.9 mg/dL (1.8-2.4); PHOSPHOROUS 3.4 mg/dL (2.5-4.9); POTASSIUM - SERUM 3.6 mmol/L (3.5-5.1); PROTEIN - SERUM 6.5 g/dL (6.4-8.2)
--- NOTE | 2016-11-27 06:25 | NUR ---
RESTING QUIETLY IN BED, NO DISTRESS NOTED
--- NOTE | 2016-11-27 07:21 | NUR ---
PT SITTING UP IN BED DENEIS NEEDS WILL CONT TO MONITOR. CONSENTS SIGNED FOR SURGERY AND PLACED ON CHART.
[2016-11-27 08:38] VITALS: BP 93/58
--- NOTE | 2016-11-27 09:15 | NUR ---
TRIED TO DO PREOP CHECKLIST FOR PT SURGERY TODAY. WILL NOT LET ME COMPLETE DUE TO PROCEDURE NOT BEING IN SYSTEM YET
[2016-11-27 12:45] VITALS: BP 96/60
--- NOTE | 2016-11-27 14:35 | NUR ---
PT TO SURGERY
--- NOTE | 2016-11-27 16:02 | NUR ---
1600 ASSESSMENT FOR PAIN. PT IS NOT IN ROOM AT THIS TIME SO I AM UNABLE TO ASSESS HER PROPERLY, THERE IS NO OTHER OPTION TO SELECT FOR INSTANCE- PT NOT IN ROOM. SELECTED PT ALERT AND ORIENTED
[2016-11-27 17:44] VITALS: BP 116/77
--- NOTE | 2016-11-27 17:50 | NUR ---
PT BACK FROM SURGERY. VS ARE WNL. PT A LITTLE LETHARGIC BUT ARROUSES EASILY. PT NEEDS TO VOID. PLACED ON BEDPAN. RECTUM IS BLEEDING WITH SLIGHT MUCOUS. PT HAD PER RECTAL COLECTOMY. JUST SCANT AMOUNT OF BLEEDING WILL MONITOR. WILL CPOC
--- NOTE | 2016-11-27 17:50 | NUR ---
PLACED NOTHING PER RECTUM SIGN ABOUT BED ORDERED
--- NOTE | 2016-11-27 18:02 | NUR ---
PT VS STILL WNL. ALERT AND ORIENTED EASY TO ARROUSE
[2016-11-27 20:00] VITALS: BP 128/91
--- NOTE | 2016-11-28 00:30 | NUR ---
BUGGY OPERATOR AT BEDSIDE FOR VS. NEEDS ADDRESSED AT THIS TIME. CALL LIGHT IN REACH. WILL CONT TO MONITOR.
--- NOTE | 2016-11-28 00:35 | NUR ---
2000)REC'D IN BED C/O RECTAL PAIN RATING PAIN 10.ARCHITECTURE INTERN MORPHINE EXPLAINED USAGE VOICES UNDERSTANDING.1MG EVERY 10MINUTES WITH 10MG Q4 HOUR LOCKOUT INTERVAL FOR SELF PAIN CONTROL
[2016-11-28 02:00] VITALS: BP 137/81
[2016-11-28 04:00] VITALS: BP 110/64
[2016-11-28 06:05] LABS: BASOPHILS 0 % (0.0-2.0); EOSINOPHILS 0 % (0-7); HEMATOCRIT 38.5 % (36.0-48.0); HEMOGLOBIN 12.1 g/dL (12-16); IMMATURE GRANULOCYTES 0.2 % (0-5); LYMPHOCYTES 3.9 % (15-50); MCH 29.4 pg (26.0-34.0); MCHC 31.4 g/dL (31.0-37.0); MONOCYTES 1.1 % (2-11); NEUTROPHILS 94.8 % (40-80); PLATELET COUNT 272 10x3/uL (130-400); RBC 4.11 10x6/uL (4.00-5.40); RDW 15.3 % (11.5-14.5); WBC 15.3 10x3/uL (4.8-10.8)
[2016-11-28 06:07] LABS: MCV 93.7 fL (80.0-100.0)
[2016-11-28 06:18] LABS: CALCIUM 7.9 mg/dL (8.5-10.1); CARBON DIOXIDE 25.7 mmol/L (21.0-32.0); CREATININE - SERUM 0.9 mg/dL (0.6-1.3); POTASSIUM - SERUM 3.7 mmol/L (3.5-5.1)
[2016-11-28 07:42] VITALS: BP 103/56
[2016-11-28 10:13] VITALS: Ht 160 cm; Wt 72.6 kg
[2016-11-28 11:12] VITALS: BP 108/63
[2016-11-28 15:25] VITALS: BP 96/56
--- NOTE | 2016-11-28 17:03 | NUR ---
PTS ASSEMBLY TECHNICIAN EMPTY. SYRINGE CHANGED.
[2016-11-28 20:00] VITALS: BP 103/59
--- NOTE | 2016-11-28 20:14 | NUR ---
IN BED WATCHING TV, MORPHINE COMMERCIAL LOAN CLOSER IN USE FOR PAIN CONTROL, PT DENIES NEEDS.
--- NOTE | 2016-11-28 21:21 | NUR ---
HS MEDS GIVEN WITH FRESH ICE WATER, NO NEEDS STATED AT THIS TIME.
--- NOTE | 2016-11-28 21:51 | NUR ---
UP WITH ASSIST TO BR.
[2016-11-29] VITALS: BP 102/60
--- NOTE | 2016-11-29 01:04 | NUR ---
RESTING WITH EYES CLOSED, RESPERATIONS EVEN, NO S/S DISTRESS NOTED.
[2016-11-29 04:00] VITALS: BP 118/73
--- NOTE | 2016-11-29 05:56 | NUR ---
FRESH WATER GIVEN AT PT REQUEST, PT DENIES OTHER NEEDS.
[2016-11-29 07:47] VITALS: BP 104/58
--- NOTE | 2016-11-29 09:18 | NUR ---
PT C/O NOT BEING ABLE TO VOID VERY MUCH. BLADDER SCAN DONE AND OVER 900ML FOUND IN BLADDER. OBTAINED ORDER PER FOR ALTMAN INSERTION. WILL ALLOW NURSING STUDENTS TO INSERT ALTMAN WITH THEIR INSTRUCTOR PT VERBALIZED IT WAS OKAY AND DENIES ANY FURTHER NEEDS.
--- NOTE | 2016-11-29 09:57 | NUR ---
PT HAD 1500ML BLUE URINE OUT OF ALTMAN SO FAR. DRAINED COLLECTION BAG AND WILL CTM.
[2016-11-29 11:06] VITALS: BP 97/49
[2016-11-29 14:49] LABS: BASOPHILS 0.2 % (0.0-2.0); EOSINOPHILS 1.2 % (0-7); IMMATURE GRANULOCYTES 0.3 % (0-5); LYMPHOCYTES 6.3 % (15-50); MCH 28.2 pg (26.0-34.0); MCHC 30.1 g/dL (31.0-37.0); MCV 93.9 fL (80.0-100.0); MEAN PLATELET VOLUME 10.4 fL (7.4-10.4); MONOCYTES 2.9 % (2-11); NEUTROPHILS 89.1 % (40-80); RDW 15.2 % (11.5-14.5)
[2016-11-29 14:53] LABS: HEMATOCRIT 30.6 % (36.0-48.0); HEMOGLOBIN 9.2 g/dL (12-16); PLATELET COUNT 199 10x3/uL (130-400); RBC 3.26 10x6/uL (4.00-5.40); WBC 11.3 10x3/uL (4.8-10.8)
[2016-11-29 15:12] LABS: CALC OSMOLALITY 269 mosm/kg (275-300); CALCIUM 7.8 mg/dL (8.5-10.1); CARBON DIOXIDE 26.2 mmol/L (21.0-32.0); CHLORIDE - SERUM 102 mmol/L (98-107); CREATININE - SERUM 0.7 mg/dL (0.6-1.3); GLUCOSE 123 mg/dL (74-106); POTASSIUM - SERUM 3.3 mmol/L (3.5-5.1); SODIUM 135 mmol/L (136-145); eGFR NON AFRICAN AMERICAN 87 mL/min (90-120)
[2016-11-29 15:17] LABS: UREA NITROGEN 9 mg/dL (7-18)
[2016-11-29 16:12] VITALS: BP 105/64
--- NOTE | 2016-11-29 16:14 | NUR ---
Patient Name: MARIE MANCUSO Admission Status: ER Accout number: [id number] Admission Date: 11-26-2016 : 1945 Admission Diagnosis:RECTAL PROLAPSE Attending: MAURA Current LOS: 3 Anticipated DC Date: TO BE DETERMINED Planned Disposition: Home Primary Insurance: [employer]ICARE ADV Discharge Planning Comments: * Is the patient Alert and Oriented? Yes 0 * How many steps to enter\exit or inside your home? 2 0 * PCP DR. HU 0 * Pharmacy [facility] [address] * Preadmission Environment Home with Family 0 * ADLs Independent 0 * Equipment Nebulizer Oxygen 0 * Other Equipment HOME AND PORTABLE OXYGEN [facility] MEDICAL EQUIPMENT PROVIDER 0 * List name and contact numbers for known caregivers / representatives who currently or will assist patient after discharge: NIC, DAUGHTER, 0 * Community resources currently utilized Other 0 * Please name any agencies selected above. [facility] 0 * Additional services required to return to the preadmission environment? No 0 * Can the patient safely return to the preadmission environment? Yes 0 * Has this patient been hospitalized within the prior 30 days at any hospital? Yes 0 CM MET WITH PT IN ROOM TO DISCUSS DISCHARGE PLANNING AND NEEDS. PT REPORTS LIVING AT HOME INDEPENDENTLY WHERE HER ADULT DAUGHTER LIVES WITH HER. PT HAS HOME AND PORTABLE OXYGEN AND NEBULIZER FROM [facility]. PT HAS [facility] AND NO OTHER SERVICES ASSISTING IN THE HOME. CM DISCUSSED AVAILABILITY OF HOME HEALTH, REHAB SERVICES AND MEDICAL EQUIPMENT. PT DENIES DISCHARGE NEEDS, REPORTS HER DAUGHTER WILL PICK HER UP FOR DISCHARGE HOME. PT PLANS TO DISCHARGE HOME, WHERE HER ADULT DAUGHTER LIVES WITH HER. PT WOULD LIKE [facility] TO CONTINUE. CM TO FOLLOW AND ASSIST NEEDED. Meat Supervisor: Tal Barrera
[2016-11-29 19:00] VITALS: BP 111/64
--- NOTE | 2016-11-30 06:49 | NUR ---
MEDITECH DOWN THROUGHOUT THE NIGHT, SEE PAPER NARRATIVE.
[2016-11-30 07:51] LABS: BASOPHILS 0.1 % (0.0-2.0); EOSINOPHILS 1.6 % (0-7); HEMATOCRIT 33.2 % (36.0-48.0); HEMOGLOBIN 10.9 g/dL (12-16); IMMATURE GRANULOCYTES 0.4 % (0-5); LYMPHOCYTES 7.8 % (15-50); MCH 29.7 pg (26.0-34.0); MCHC 32.8 g/dL (31.0-37.0); MEAN PLATELET VOLUME 11.2 fL (7.4-10.4); MONOCYTES 2.5 % (2-11); NEUTROPHILS 87.6 % (40-80); PLATELET COUNT 234 10x3/uL (130-400); RBC 3.67 10x6/uL (4.00-5.40); RDW 15.3 % (11.5-14.5); WBC 12.4 10x3/uL (4.8-10.8)
[2016-11-30 07:57] LABS: MCV 90.5 fL (80.0-100.0)
[2016-11-30 08:00] LABS: CALC OSMOLALITY 276 mosm/kg (275-300); CALCIUM 8.2 mg/dL (8.5-10.1); CARBON DIOXIDE 24.6 mmol/L (21.0-32.0); CHLORIDE - SERUM 103 mmol/L (98-107); CREATININE - SERUM 0.7 mg/dL (0.6-1.3); GLUCOSE 93 mg/dL (74-106); POTASSIUM - SERUM 3.4 mmol/L (3.5-5.1); SODIUM 139 mmol/L (136-145); UREA NITROGEN 11 mg/dL (7-18); eGFR NON AFRICAN AMERICAN 87 mL/min (90-120)
--- NOTE | 2016-11-30 08:23 | NUR ---
PT C/O BOWEL MOVEMENTS "OOZING OUT" CHECKED RECTUM AND ITS PINK AND NORMAL FOR HER, NO SKIN BREAKDOWN OR TEARS NOTED. PT HAS BEEN HAVING JUST LEAKY STOOLS PT DID GET A LAXATIVE YESTERDAY AND COULD JUST NEED MORE FOOD TO FORM SOFT STOOL WILL CTM. ALTMAN STILL IN PLACE URINE NOW CLEAR YELLOW, WILL START BLADDER TRAINING TODAY. NO FURTHER NEEDS. CL IN REACH. WILL CPOC.
[2016-11-30 08:50] VITALS: BP 134/88
[2016-11-30 11:54] VITALS: BP 106/82
--- NOTE | 2016-11-30 14:04 | NUR ---
D/C PTS ALTMAN PER VERBAL ORDER BY SANCHEZ LANTIGUA APN. PT SITTING ON TOILET HAVING VERY LOOSE LEAKING STOOL. DENIES ANY CURRENT PAIN OR NEEDS. WANTS TO GO HOME TODAY AND STATES TOLD HER SHE CAN. WILL WAIT ON ORDERS AND CTM.
[2016-11-30 16:09] VITALS: BP 118/71
[2016-11-30] MEDS ORDERED: FLAGYL500 MG PO (16:43)
[2016-11-30] MEDS ORDERED: ULTRAM50 MG PO (16:46)
--- NOTE | 2016-11-30 17:07 | NUR ---
Patient Name: MARIE MANCUSO Admission Status: ER Accout number: [id number] Admission Date: 11-26-2016 : 1945 Admission Diagnosis:RECTAL PROLAPSE Attending: MAURA Current LOS: 4 Anticipated DC Date: 11-30-2016 Planned Disposition: Home Primary Insurance: [employer] MEDICARE ADV Discharge Planning Comments: CM MET WITH PT IN ROOM TO DISCUSS DISCHARGE NEEDS AND PLANNING. CM DISCUSSED AVAILABILITY OF HOME HEALTH, REHAB SERVICES AND MEDICAL EQUIPMENT. PT DENIES DISCHARGE NEEDS. DAUGHTER TO TRANSPORT HOME AT DISCHARGE. IMPORTANT MESSAGE FROM MEDICARE PROVIDED AND EXPLAINED. Assembler Carbon Brushes: Tal Barrera
--- NOTE | 2016-11-30 17:16 | NUR ---
D/C PTS R.FA PIV WITH CATHETER TIP FULLY INTACT. DISCHARGE TEACHING PROVIDED AND PAPERS SIGNED PT DENIES ANY QUESTIONS OR CONCERNS AND IS READY TO LEAVE.
== END 2016-11-30 17:17 | disposition home or self-care (01) | DRG 333 ==
LOC: D.ER 18:41 → D.M2 22:21
PROVIDERS: Emergency Medicine; Nurse Practitioner Family; Surgery; ADMIT Family Medicine
PROC: 0DTP4ZZ Resection of Rectum, Percutaneous Endoscopic Approach (ICD-10-PCS; principal; 2016-11-27 09:15)
DX: K62.3 Rectal prolapse (principal); F17.203 Nicotine dependence unspecified, with withdrawal; R33.9 Retention of urine, unspecified; I50.9 Heart failure, unspecified; J44.9 Chronic obstructive pulmonary disease, unspecified

== ENCOUNTER → 2018-07-03 15:02 | Outpatient (CLI) | payer MEDICARE ==
[2016-11-28 10:13] VITALS: BMI 28.3
[~2018-07-03 15:02] MED LIST changes: +FLAGYL500 MG PO; +ULTRAM50 MG PO
== END | disposition home or self-care (01) ==
LOC: D.MRI 15:00
DX: M48.56XA Collapsed vertebra, not elsewhere classified, lumbar region, initial encounter for fracture (principal); X58.XXXA Exposure to other specified factors, initial encounter

== ENCOUNTER → 2019-01-02 17:36 | Outpatient (CLI) | payer MEDICARE ==
[2016-11-28 10:13] VITALS: BMI 28.3
== END | disposition home or self-care (01) ==
LOC: D.LABREF 17:36
PROVIDERS: ATTEND Urology
DX: N39.0 Urinary tract infection, site not specified (principal); R31.9 Hematuria, unspecified

== ENCOUNTER → 2019-01-22 11:12 | Outpatient (CLI) | payer MEDICARE ==
[2016-11-28 10:13] VITALS: BMI 28.3
== END | disposition home or self-care (01) ==
LOC: D.CT 01-08 10:00
PROVIDERS: ATTEND Urology
DX: R31.0 Gross hematuria (principal)

== ENCOUNTER 2019-02-19 05:12 | Day surgery (SDC) | payer MEDICARE ==
[~2019-02-19] VITALS: Ht 157.5 cm; Wt 45.4 kg
[2019-02-19 05:44] LABS: HEMATOCRIT 40.9 % (36.0-48.0); HEMOGLOBIN 14.5 g/dL (12-16); MCH 32.4 pg (26.0-34.0); MCHC 35.5 g/dL (31.0-37.0); MCV 91.3 fL (80.0-100.0); MEAN PLATELET VOLUME 10.5 fL (7.4-10.4); RBC 4.48 10x6/uL (4.00-5.40); RDW 14.4 % (11.5-14.5); WBC 10.1 10x3/uL (4.8-10.8)
[2019-02-19 06:09] LABS: ANION GAP 14.3 mmol/L (8-16); CALCIUM 9.9 mg/dL (8.5-10.1); CARBON DIOXIDE 26.9 mmol/L (21.0-32.0); POTASSIUM - SERUM 4.2 mmol/L (3.5-5.1)
[2019-02-19 06:38] VITALS: BP 122/74; Ht 157.5 cm; Wt 45.4 kg
--- NOTE | 2019-02-19 08:36 | OP ---
PATIENT NAME: MARIE MANCUSO MEDICAL RECORD: [id number] :43 [facility] ADMISSION DATE: SURGEON: RICH SOLIS MD DATE OF OPERATION: 02/19/2019 SURGEON: Rich Solis MD. ANESTHESIA: TIVA by [place]. DIAGNOSIS: Hematuria. PROCEDURE: Cystoscopy. FINDINGS: Mild bladder inflammation, single ureteral orifices bilaterally. No bladder tumors. ESTIMATED BLOOD LOSS: None. CLINICAL HISTORY: This is a 73-year-old female, who is being investigated for hematuria. She was seen by her scrubber system attendant and she was put on estrogen cream. She had a CT scan of the abdomen and pelvis, which showed some degenerative disc disease as well as cholelithiasis. Kidneys are normal with no stones and no tumors and no hydronephrosis. Urine cultures grew mixed organisms. Urine cytology showed inflammatory cells, primarily neutrophils consistent with a UTI. She comes today to have cystoscopy done. She is not allergic to any medications. She was given Ancef community relations representative to the OR. DESCRIPTION OF PROCEDURE: The patient was given IV sedation. She was then placed in the lithotomy position. She has severe vaginal stenosis. There was a urethral stricture present and we used sounds to dilate the urethra to 24-Mongolian. A 21-Mongolian cystoscope was then introduced into the bladder. No tumors were seen. She has some mild inflammation which is most likely left over from a previous cystitis. The bladder was then emptied through the cystoscope sheath and the scope was removed. The patient was brought to recovery room. TRANSINT:[id number] Voice Confirmation ID: [id number] DOCUMENT ID: [id number] RICH SOLIS MD at 0836 CC: [id number] DICTATION DATE: 02/19/19 08 CAREGIVERS NON MEDICAL: 02/19/19 0814 [facility] [address] [place] [address]
--- NOTE | 2019-02-19 09:08 | NUR ---
0908 DRINKING LIQUIDS WITHOUT NAUSEA IS DRESSED AND STATES READY TO GO HOME DC INSTS REVIEWED W/C CALLED FOR DAUGHTER TO DRIVE HOME.
== END 2019-02-19 09:10 | disposition home or self-care (01) ==
LOC: D.OPS 05:12 → D.PAN 07:30 → D.OPS 09:10
PROVIDERS: Anesthesiology; ATTEND Urology
DX: N30.91 Cystitis, unspecified with hematuria (principal); Z01.812 Encounter for preprocedural laboratory examination

== ENCOUNTER 2020-02-12 16:42 | Inpatient (IN) | payer MEDICARE ==
[~2020-02-12] VITALS: Ht 157.5 cm; Wt 45.5 kg
--- NOTE | 2020-02-12 17:10 | NUR ---
PT SITING IN WC WITH PORTABLE O2 ON @ 3 L PNC READING NEWSPAPER, SPEAKING FULL SENTENCES, NAD NOTED. DENIES CP
[2020-02-12 17:39] LABS: BASOPHILS 0.3 % (0-2); EOSINOPHILS 1.3 % (0-7); HEMATOCRIT 42.1 % (36.0-48.0); HEMOGLOBIN 13.8 g/dL (12-16); IMMATURE GRANULOCYTES 0.2 % (0-5); LYMPHOCYTES 13.3 % (15-50); MCH 29.9 pg (26.0-34.0); MCHC 32.8 g/dL (31.0-37.0); MCV 91.1 fL (80.0-100.0); MEAN PLATELET VOLUME 10.5 fL (7.4-10.4); MONOCYTES 4.1 % (2-11); NEUTROPHILS 80.8 % (40-80); PLATELET COUNT 321 10x3/uL (130-400); RBC 4.62 10x6/uL (4.00-5.40); RDW 15.3 % (11.5-14.5); WBC 9.3 10x3/uL (4.8-10.8)
[2020-02-12 17:50] LABS: CALC OSMOLALITY 275 mosm/kg (275-300); CALCIUM 9.1 mg/dL (8.5-10.1); CARBON DIOXIDE 27.3 mmol/L (21.0-32.0); CHLORIDE - SERUM 102 mmol/L (98-107); CREATININE - SERUM 0.9 mg/dL (0.6-1.3); GLUCOSE 122 mg/dL (74-106); POTASSIUM - SERUM 3.8 mmol/L (3.5-5.1); SODIUM 137 mmol/L (136-145); UREA NITROGEN 14 mg/dL (7-18); eGFR NON AFRICAN AMERICAN 65 mL/min (90-120)
[2020-02-12 17:52] LABS: APTT 31.1 SECONDS (22.8-39.4); INR 0.95 (0.85-1.17); PROTIME 12.6 SECONDS (11.6-15.0)
[2020-02-12 18:07] LABS: ALBUMIN 3.8 g/dL (3.4-5.0); ALKALINE PHOSPHATASE 110 U/L (30-120); ALT (SGPT) 25 U/L (10-68); BILIRUBIN - TOTAL 1.02 mg/dL (0.2-1.3); CKMB 2.7 U/L (0.0-3.6); CREATINE KINASE 39 UL (21-215); PRO BNP 13364 pg/mL (0-450); PROTEIN - SERUM 7.6 g/dL (6.4-8.2)
--- NOTE | 2020-02-12 18:40 | NUR ---
RECEIVED PT TO ROOM AT THIS TIME.
--- NOTE | 2020-02-12 21:25 | NUR ---
PT FROM ER VIA W/C, PT TO BED, O2@2.5L/NC, NO DISTRESS NOTED, CL IN REACH, SR UP X 2.
[2020-02-13 00:48] VITALS: BP 123/84
[2020-02-13 06:00] VITALS: BP 133/85
[2020-02-13 06:48] LABS: BASOPHILS 0.1 % (0-2); EOSINOPHILS 0.1 % (0-7); HEMOGLOBIN 12.6 g/dL (12-16); IMMATURE GRANULOCYTES 0.3 % (0-5); LYMPHOCYTES 9.1 % (15-50); MCH 29.2 pg (26.0-34.0); MCHC 32.3 g/dL (31.0-37.0); MCV 90.3 fL (80.0-100.0); MEAN PLATELET VOLUME 10.6 fL (7.4-10.4); MONOCYTES 1.9 % (2-11); NEUTROPHILS 88.5 % (40-80); PLATELET COUNT 348 10x3/uL (130-400); RBC 4.32 10x6/uL (4.00-5.40); WBC 7.5 10x3/uL (4.8-10.8)
[2020-02-13 07:14] LABS: ALBUMIN 3.6 g/dL (3.4-5.0); ALKALINE PHOSPHATASE 111 U/L (30-120); ALT (SGPT) 23 U/L (10-68); BILIRUBIN - TOTAL 0.93 mg/dL (0.2-1.3); CALC OSMOLALITY 283 mosm/kg (275-300); CALCIUM 9.3 mg/dL (8.5-10.1); CARBON DIOXIDE 29.5 mmol/L (21.0-32.0); CHLORIDE - SERUM 103 mmol/L (98-107); CKMB 2.1 U/L (0.0-3.6); CREATINE KINASE 42 UL (21-215); GLUCOSE 163 mg/dL (74-106); MAGNESIUM - SERUM 2.1 mg/dL (1.8-2.4); POTASSIUM - SERUM 4.2 mmol/L (3.5-5.1); PROTEIN - SERUM 6.9 g/dL (6.4-8.2); SODIUM 139 mmol/L (136-145); TROPONIN-I 0.023 ng/mL (0.000-0.060); eGFR NON AFRICAN AMERICAN 57 mL/min (90-120)
[2020-02-13 07:17] LABS: UREA NITROGEN 18 mg/dL (7-18)
--- NOTE | 2020-02-13 07:30 | NUR ---
REPORT RECIEVED. PT SITTING SEMI FOWLERS IN BED, RR EVEN AND UNLABORED ON 2.5L NC. BED LOCKED AND IN LOWEST POSITION. CALL LIGHT WITHIN REACH. WILL CTM
[2020-02-13 08:11] VITALS: BP 132/94
[2020-02-13 12:13] VITALS: BP 111/64
[2020-02-13 12:33] VITALS: Ht 157.5 cm; Wt 45.5 kg
[2020-02-13 12:51] LABS: CREATINE KINASE 51 UL (21-215); TROPONIN-I 0.022 ng/mL (0.000-0.060)
--- NOTE | 2020-02-13 14:59 | NUR ---
I have reviewed this patient and I concur with the Shift Assessment completed by the Licensed Practical Nurse today this shift.
--- NOTE | 2020-02-13 19:30 | NUR ---
PT IN BED, AAO X 3, RESP EVEN AND UNLABORED. NO DISTRESS NOTED, CL N REACH, SR UP X 2.
[2020-02-13 20:00] VITALS: BP 107/69
[2020-02-14] VITALS: BP 115/78
--- NOTE | 2020-02-14 01:56 | NUR ---
PT SALINE LOCK TO LEFT FOREARM LEAKING WHEN FLUSHED, TAKIN OUT, NEW 20G INSERTED TO RIGHT FOREARM AT THIS TIME.
[2020-02-14 04:00] VITALS: BP 139/63
[2020-02-14 05:08] LABS: BASOPHILS 0.1 % (0-2); EOSINOPHILS 0 % (0-7); HEMATOCRIT 37.7 % (36.0-48.0); HEMOGLOBIN 12.4 g/dL (12-16); IMMATURE GRANULOCYTES 0.2 % (0-5); LYMPHOCYTES 6.9 % (15-50); MCH 29.5 pg (26.0-34.0); MCHC 32.9 g/dL (31.0-37.0); MCV 89.8 fL (80.0-100.0); MEAN PLATELET VOLUME 10.9 fL (7.4-10.4); MONOCYTES 3.7 % (2-11); NEUTROPHILS 89.1 % (40-80); PLATELET COUNT 356 10x3/uL (130-400); RDW 15.3 % (11.5-14.5)
[2020-02-14 05:26] LABS: WBC 13.8 10x3/uL (4.8-10.8)
[2020-02-14 05:39] LABS: ANION GAP 12.3 mmol/L (8-16); CALCIUM 9.4 mg/dL (8.5-10.1); CARBON DIOXIDE 29.3 mmol/L (21.0-32.0); CREATININE - SERUM 1.2 mg/dL (0.6-1.3); POTASSIUM - SERUM 3.6 mmol/L (3.5-5.1)
[2020-02-14 10:36] VITALS: BP 98/63
[2020-02-14 15:48] VITALS: BP 94/45
[2020-02-14 20:30] VITALS: BP 94/52
[2020-02-15 00:26] VITALS: BP 87/44
[2020-02-15 04:30] VITALS: BP 89/48
[2020-02-15 05:31] LABS: BASOPHILS 0 % (0-2); EOSINOPHILS 0 % (0-7); HEMATOCRIT 37.4 % (36.0-48.0); HEMOGLOBIN 12.3 g/dL (12-16); IMMATURE GRANULOCYTES 0.3 % (0-5); LYMPHOCYTES 4.7 % (15-50); MCH 29.7 pg (26.0-34.0); MCHC 32.9 g/dL (31.0-37.0); MCV 90.3 fL (80.0-100.0); MEAN PLATELET VOLUME 11.3 fL (7.4-10.4); MONOCYTES 2.7 % (2-11); NEUTROPHILS 92.3 % (40-80); PLATELET COUNT 395 10x3/uL (130-400); RBC 4.14 10x6/uL (4.00-5.40); RDW 15.4 % (11.5-14.5); WBC 15.2 10x3/uL (4.8-10.8)
[2020-02-15 05:59] LABS: ANION GAP 13.1 mmol/L (8-16); CALCIUM 9.3 mg/dL (8.5-10.1); CARBON DIOXIDE 29.3 mmol/L (21.0-32.0); MAGNESIUM - SERUM 2.3 mg/dL (1.8-2.4)
[2020-02-15 06:00] LABS: CREATININE - SERUM 1.7 mg/dL (0.6-1.3); POTASSIUM - SERUM 4.4 mmol/L (3.5-5.1)
[2020-02-15 10:06] VITALS: BP 92/58
[2020-02-15 13:12] VITALS: BP 119/51
--- NOTE | 2020-02-15 19:54 | NUR ---
PATIENT RESTING IN BED WITH NO S/S OF DISTRESS. BROUGHT PATIENT A SNACK AND DRINK PER HER REQUEST. PATIENT DENIES OTHER NEEDS AT THIS TIME. BED IN LOWEST POSITION AND CALL LIGHT WITHIN REACH. ENCOURAGED THE PATIENT TO CALL IF SHE HAS NEEDS. WILL CONTINUE TO MONITOR.
[2020-02-15 20:30] VITALS: BP 109/59
--- NOTE | 2020-02-15 22:30 | NUR ---
PAGED SANCHEZ PER PATIENT'S REQUEST IN REGARDS TO PATIENT REQUEST FOR "SOMETHING FOR HEARTBURN"
--- NOTE | 2020-02-16 02:05 | NUR ---
NOTIFIED BY BROKE BEATER THAT THERE IS AN ELEVATION IN THE PATIENT'S T WAVE. COMPLETED EKG, WHICH IS SIMILAR TO ADMISSION EKG. PATIENT IS NOT SYMPTOMATIC. PATIENT DENIES NEEDS AT THIS TIME. BED IN LOWEST POSITION AND CALL LIGHT WITHIN REACH. ENCOURAGED THE PATIENT TO CALL IF SHE HAS NEEDS. WILL CONTINUE TO MONITOR.
[2020-02-16 04:30] VITALS: BP 135/70
[2020-02-16 06:04] LABS: BASOPHILS 0 % (0-2); EOSINOPHILS 0 % (0-7); HEMATOCRIT 38.1 % (36.0-48.0); HEMOGLOBIN 12.6 g/dL (12-16); IMMATURE GRANULOCYTES 0.2 % (0-5); LYMPHOCYTES 6.3 % (15-50); MCH 29.8 pg (26.0-34.0); MCHC 33.1 g/dL (31.0-37.0); MCV 90.1 fL (80.0-100.0); MEAN PLATELET VOLUME 11.2 fL (7.4-10.4); MONOCYTES 3.5 % (2-11); PLATELET COUNT 354 10x3/uL (130-400); RBC 4.23 10x6/uL (4.00-5.40); RDW 15.2 % (11.5-14.5)
[2020-02-16 06:27] LABS: ANION GAP 13.5 mmol/L (8-16); CALCIUM 9.1 mg/dL (8.5-10.1); CARBON DIOXIDE 27.6 mmol/L (21.0-32.0); CREATININE - SERUM 1.4 mg/dL (0.6-1.3); MAGNESIUM - SERUM 2.6 mg/dL (1.8-2.4); POTASSIUM - SERUM 4.1 mmol/L (3.5-5.1)
[2020-02-16 10:27] VITALS: BP 90/61
[2020-02-16 18:22] VITALS: BP 137/97
[2020-02-16 20:30] VITALS: BP 110/64
[2020-02-17 04:30] VITALS: BP 117/68
[2020-02-17 06:45] LABS: HEMATOCRIT 42.1 % (36.0-48.0); HEMOGLOBIN 13.7 g/dL (12-16); MCH 29.6 pg (26.0-34.0); MCHC 32.5 g/dL (31.0-37.0); MCV 90.9 fL (80.0-100.0); MEAN PLATELET VOLUME 10.8 fL (7.4-10.4); PLATELET COUNT 393 10x3/uL (130-400); RBC 4.63 10x6/uL (4.00-5.40); RDW 15.3 % (11.5-14.5); WBC 10.1 10x3/uL (4.8-10.8)
[2020-02-17 06:55] LABS: ANION GAP 10.4 mmol/L (8-16); CALCIUM 9.1 mg/dL (8.5-10.1); CARBON DIOXIDE 29.7 mmol/L (21.0-32.0); CREATININE - SERUM 1.1 mg/dL (0.6-1.3); MAGNESIUM - SERUM 2.5 mg/dL (1.8-2.4); POTASSIUM - SERUM 4.1 mmol/L (3.5-5.1)
--- NOTE | 2020-02-17 07:20 | NUR ---
RECIEVE REPORT. ALERT AND ORIENTED X4. SITTING UP IN BED READING BOOK. RUN OF 6 VTACH ON TELEMETRY. ASYMPTOMATIC. NOTIFY . "TELL JESÚS CHAMPION WHEN SHE GETS HER," REPLIES .
[2020-02-17 09:00] VITALS: BP 128/60
[2020-02-17 11:00] VITALS: BP 119/77
[2020-02-17 11:36] LABS: EOSINOPHILS 1 % (0-7); LYMPHOCYTES 26 % (15-50); MONOCYTES 18 % (2-11); NEUTROPHILS 55 % (40-80); PLATELET ESTIMATE NORMAL
[2020-02-17 11:37] LABS: ROULEAUX OCC
--- NOTE | 2020-02-17 13:40 | NUR ---
Nutrition Follow-up: Good appetite/PO intake. Continues to c/o food getting stuck in esophagus; ST rec GI consult. Diet: Cardiac PO intake: 96% avg x 7 meals Wt: 100# (02/13) Last BM: 2-3 days ago per pt Labs noted: Na 132, Mg 2.5 Meds noted: Prednisone, Lasix, Miralax, Senokot, Micro K, Protonix, electrolyte protocol -Monitor wt; noted daily wts ordered. -RD following.
[2020-02-17 15:00] VITALS: BP 116/74
--- NOTE | 2020-02-17 20:15 | NUR ---
REPORT RECEIVED AND ROUNDING COMPLETE. PATIENT LAYING IN BED IN LOW FOLWERS, NO S/SX OF DISTRESS. WEARING NASAL CANNULA WITH O2 AT 3L, AND PIV IN RIGHT FOREARM PIV THAT IS SALINE LOCKED. PATUIENT IS A&O X4. CALL LIGHT WIHTIN REACH AND BED IN LOWEST LOCKED POSITION. NO NEEDS VOICED AT THIS TIME.
[2020-02-17 21:21] VITALS: BP 104/65
[2020-02-18 01:04] VITALS: BP 125/74
[2020-02-18 04:00] VITALS: BP 99/60
--- NOTE | 2020-02-18 04:35 | NUR ---
PATIENT FORGOT THAT SHE WAS NPO AND GOT HER SELF A SMALL CUP OF BLACK COFFEE, WILL INFORM DAILY NURSE AND REMINDED PATIENT THAT SHE IN NPO. WILL LET DAY NURSE KNOW SO IT CAN BE REPORT TO DOCTOR.
[2020-02-18 05:07] LABS: BASOPHILS 0 % (0-2); EOSINOPHILS 0.7 % (0-7); HEMATOCRIT 43.6 % (36.0-48.0); HEMOGLOBIN 14.1 g/dL (12-16); IMMATURE GRANULOCYTES 0.4 % (0-5); LYMPHOCYTES 20.7 % (15-50); MCH 29.5 pg (26.0-34.0); MCHC 32.3 g/dL (31.0-37.0); MCV 91.2 fL (80.0-100.0); MEAN PLATELET VOLUME 11.2 fL (7.4-10.4); MONOCYTES 9.3 % (2-11); NEUTROPHILS 68.9 % (40-80); PLATELET COUNT 449 10x3/uL (130-400); RBC 4.78 10x6/uL (4.00-5.40); WBC 9.9 10x3/uL (4.8-10.8)
[2020-02-18 06:00] LABS: ANION GAP 14.1 mmol/L (8-16); CALCIUM 9.1 mg/dL (8.5-10.1); CARBON DIOXIDE 27.1 mmol/L (21.0-32.0); CREATININE - SERUM 1.2 mg/dL (0.6-1.3); POTASSIUM - SERUM 4.2 mmol/L (3.5-5.1)
[2020-02-18 07:59] VITALS: BP 112/64
[2020-02-18 11:00] VITALS: BP 95/53
[2020-02-18 15:00] VITALS: BP 108/71
--- NOTE | 2020-02-18 15:00 | NUR ---
ARRIVE BACK TO ROOM VIA BED FROM EGD. ALERT AND ORIENTED X4. VITALS STABLE. NO SIGNS OF DISTRESS. ABLE TO DRINK WITHOUT DIFFICULTY. CONTINUE PLAN OF CARE AND SAFETY PRECAUTIONS.
[2020-02-18 20:00] VITALS: BP 115/55
[2020-02-19] VITALS: BP 116/52
[2020-02-19 04:00] VITALS: BP 112/57
[2020-02-19 05:37] LABS: BASOPHILS 0 % (0-2); EOSINOPHILS 0.8 % (0-7); HEMATOCRIT 36.8 % (36.0-48.0); HEMOGLOBIN 11.9 g/dL (12-16); IMMATURE GRANULOCYTES 0.7 % (0-5); LYMPHOCYTES 22.3 % (15-50); MCH 29.5 pg (26.0-34.0); MCHC 32.3 g/dL (31.0-37.0); MCV 91.1 fL (80.0-100.0); MEAN PLATELET VOLUME 11.1 fL (7.4-10.4); MONOCYTES 9.2 % (2-11); RBC 4.04 10x6/uL (4.00-5.40); RDW 14.7 % (11.5-14.5); WBC 9.1 10x3/uL (4.8-10.8)
[2020-02-19 05:43] LABS: PLATELET COUNT 357 10x3/uL (130-400)
[2020-02-19 06:09] LABS: ANION GAP 13.2 mmol/L (8-16); CALCIUM 8.4 mg/dL (8.5-10.1); CARBON DIOXIDE 23.3 mmol/L (21.0-32.0); CREATININE - SERUM 0.8 mg/dL (0.6-1.3); MAGNESIUM - SERUM 2.3 mg/dL (1.8-2.4); POTASSIUM - SERUM 4.5 mmol/L (3.5-5.1)
--- NOTE | 2020-02-19 07:33 | NUR ---
REPORT RECIEVED. PT SITTING SEMI FOWLERS IN BED. RR EVEN AND UNLABORED ON 3L NC. SHE HAS A L HAND PIV INFUSING NS@50. BED LOCKED AND IN LOWEST POSITION, CALL LIGHT WITHIN REACH. WILL CTM
[2020-02-19 11:08] VITALS: BP 127/66
[2020-02-19] MEDS ORDERED: LASIX20 MG PO (14:04)
[2020-02-19] MEDS ORDERED: PREDNISONE10 MG PO (14:05)
[2020-02-19] MEDS ORDERED: OMNICEF300 MG PO (14:06)
[2020-02-19] MEDS ORDERED: TOPROL XL25 MG PO (14:07)
[2020-02-19] MEDS ORDERED: SINGULAIR10 MG PO (14:08)
[2020-02-19] MEDS ORDERED: PROTONIX40 MG PO (14:08)
[2020-02-19] MEDS ORDERED: DALIRESP250 MCG PO (14:08)
[2020-02-19] MEDS ORDERED: IPRAT-ALBUT 0.5-3 ML UPD (14:13)
--- NOTE | 2020-02-19 15:58 | NUR ---
DC PAPERWORK GONE OVER AND SIGNED WITH PT. PIV REMOVED CATH TIP FULLY INTACT. AWAITING HER DAUGHTER TO PICK HER UP. WILL CTM
--- NOTE | 2020-02-19 17:12 | MORECARE ---
CASE MANAGEMENT DISCHARGE SUMMARY PATIENT: MARIE MANCUSO UNIT: [id number] ADM DATE: 02/12/20 AGE: 74 : 44 SEX: F ROOM/BED: D.0274 AUTHOR: SHAQ,DOC PHYSICIAN: REFERRING PHYSICIAN: NEMESIO LUCERO DO DATE OF SERVICE: 02/19/20 Discharge Plan Patient Name: MARIE MANCUSO Facility: [facility]:[place] : 1945 Planned Disposition: Home with Home Health Anticipated Discharge Date: 02/19/20 Discharge Date: Expected LOS: 7 Initial Reviewer: [email or web address] Initial Review Date: 02/12/2020 Generated: 02/19/20 6:11 pm DCP- Discharge Planning Updated by [email or web address]: Aubrie Mar on 02/18/20 4:[address] DC plans/needs: Nebulizer (per Pulm progress), will require an order. Order for HHS. CM met with patient regarding DC needs/plans. Patient is in agreement to same. Patient lives independently with her daughter, Breonna Sanders, . PCP: Dr. Macdonald. Pharmacy .DME: Home O2, portable O2 (unknown provider). HHS: No. CM discussed HHS, OP Therapy, SNF, Rehab. Patient states she would like to have HHS upon DC. Patient states she has no preference for HHS. CM discussed HHS with patient's daughter and she is in agreement to same, with no preference. CM will follow and assist with further DC plans. DCP- Discharge Planning Updated by [email or web address]: Aubrie Mar on 02/18/20 8:[address] DC Plan: Home with HHS, Nebulizer. CM met with patient regarding DC planning. Patient lives independently with her daughter, Fortino Sanders, [phone]. PCP: Dr. Macdonald. [facility]acy: [facility]. DME: O2, Portable O2. [facility] nurses visit the patient. CM contacted the patient's daughter, Fortino, regarding HHS and she is in agreement with same. Patient and daughter are in agreement with any HH company. Patient denies use of community service. Patient states she feels safe returning to her home, with her daughter. Denies being hospitalized within past 30 days. Patient's daughter will drive patient home upon DC. CM will follow and assist with DC needs PRN. External Providers External Provider: [facility] Contact Date: Service Request Date: Service Type: Resolution: Reviewer: Comments: Patient Name: MARIE MANCUSO Page [phone] at 1712 All edits/amendments must be made on the electronic document DICTATION DATE: 02/19/201710 TACK DRILLER: MICHAEL 02/19/201710 RPT#: [id number] DC DATE: STATUS: ADM IN [facility] [address] [place] [address] END OF REPORT
--- NOTE | 2020-02-19 17:20 | MORECARE ---
CASE MANAGEMENT DISCHARGE SUMMARY PATIENT: MARIE MANCUSO UNIT: [id number] ADM DATE: 02/12/20 AGE: 74 : 44 SEX: F ROOM/BED: D.0800 AUTHOR: SHAQ,DOC PHYSICIAN: REFERRING PHYSICIAN: NEMESIO LUCERO DO DATE OF SERVICE: 02/19/20 Discharge Plan Patient Name: MARIE MANCUSO Facility: [facility]:[place] : 1945 Planned Disposition: Home with Home Health Anticipated Discharge Date: 02/19/20 Discharge Date: Expected LOS: 7 Initial Reviewer: [email or web address] Initial Review Date: 02/12/2020 Generated: 02/19/20 6:19 pm Comments DCP- Discharge Planning Updated by [email or web address]: Aubrie Mar on 02/19/20 4:[address] Patient has no preference for DME or HHS. CM will fax information to [facility] IV. UD will be ordered from [employer]. DCP- Discharge Planning Updated by [email or web address]: Aubrie Mar on 02/18/20 4:[address] DC plans/needs: Nebulizer (per Pulm progress), will require an order. Order for HHS. CM met with patient regarding DC needs/plans. Patient is in agreement to same. Patient lives independently with her daughter, Breonna Sanders, . PCP: Dr. Macdonald. Pharmacy .DME: Home O2, portable O2 (unknown provider). HHS: No. CM discussed HHS, OP Therapy, SNF, Rehab. Patient states she would like to have HHS upon DC. Patient states she has no preference for HHS. CM discussed HHS with patient's daughter and she is in agreement to same, with no preference. CM will follow and assist with further DC plans. DCP- Discharge Planning Updated by [email or web address]: Aubrie Mar on 02/18/20 8:[address] DC Plan: Home with HHS, Nebulizer. CM met with patient regarding DC planning. Patient lives independently with her daughter, Fortino Sanders, [phone]. PCP: Dr. Macdonald. Pharmacy: [facility]. DME: O2, Portable O2. [facility] nurses visit the patient. CM contacted the patient's daughter, Fortino, regarding HHS and she is in agreement with same. Patient and daughter are in agreement with any HH company. Patient denies use of community service. Patient states she feels safe returning to her home, with her daughter. Denies being hospitalized within past 30 days. Patient's daughter will drive patient home upon DC. CM will follow and assist with DC needs PRN. External Providers External Provider: [facility] Contact Date: Service Request Date: Service Type: Resolution: Reviewer: Comments: Last DP export: 02/19/20 4:12 pm Patient Name: MARIE MANCUSO Page [phone] at 1720 All edits/amendments must be made on the electronic document DICTATION DATE: 02/19/201719 CAR SANDER: MICHAEL 02/19/201719 RPT#: [id number] DC DATE: STATUS: ADM IN [facility] [address] [place] [address] END OF REPORT
--- NOTE | 2020-02-19 17:34 | MORECARE ---
CASE MANAGEMENT DISCHARGE SUMMARY PATIENT: MARIE MANCUSO UNIT: [id number] ADM DATE: 02/12/20 AGE: 74 : 44 SEX: F ROOM/BED: D.2972 AUTHOR: SHAQ,DOC PHYSICIAN: REFERRING PHYSICIAN: NEMESIO LUCERO DO DATE OF SERVICE: 02/19/20 Discharge Plan Patient Name: MARIE MANCUSO Facility: [facility]:[place] : 1945 Planned Disposition: Home with Home Health Anticipated Discharge Date: 02/19/20 Discharge Date: Expected LOS: 7 Initial Reviewer: [email or web address] Initial Review Date: 02/12/2020 Generated: 02/19/20 6:34 pm Comments DCP- Discharge Planning Updated by [email or web address]: Aubrie Mar on 02/19/20 4:[address] Patient has no preference for DME or HHS. CM will fax information to [facility] IV. UD will be ordered from [email or web address]. DCP- Discharge Planning Updated by [email or web address]: Aubrie Mar on 02/18/20 4:[address] DC plans/needs: Nebulizer (per Pulm progress), will require an order. Order for HHS. CM met with patient regarding DC needs/plans. Patient is in agreement to same. Patient lives independently with her daughter, Breonna Sanders, . PCP: Dr. Macdonald. Pharmacy .DME: Home O2, portable O2 (unknown provider). HHS: No. CM discussed HHS, OP Therapy, SNF, Rehab. Patient states she would like to have HHS upon DC. Patient states she has no preference for HHS. CM discussed HHS with patient's daughter and she is in agreement to same, with no preference. CM will follow and assist with further DC plans. DCP- Discharge Planning Updated by [email or web address]: Aubrie Mar on 02/18/20 8:[address] DC Plan: Home with HHS, Nebulizer. CM met with patient regarding DC planning. Patient lives independently with her daughter, Fortino Sanders, [phone]. PCP: Dr. Macdonald. Pharmacy: [facility]. DME: O2, Portable O2. [facility] nurses visit the patient. CM contacted the patient's daughter, Fortino, regarding HHS and she is in agreement with same. Patient and daughter are in agreement with any HH company. Patient denies use of community service. Patient states she feels safe returning to her home, with her daughter. Denies being hospitalized within past 30 days. Patient's daughter will drive patient home upon DC. CM will follow and assist with DC needs PRN. Last DP export: 02/19/20 4:20 pm Patient Name: MARIE MANCUSO Page [phone] at 1734 All edits/amendments must be made on the electronic document DICTATION DATE: 02/19/201733 PEWTER FABRICATOR: MICHAEL 02/19/204 RPT#: [id number] DC DATE: STATUS: ADM IN [facility] [address] [place] [address] END OF REPORT
== END 2020-02-19 20:16 | disposition home health service (06) | DRG 291 ==
LOC: D.ER 16:42 → D.M2 19:29
PROVIDERS: Family Medicine; Internal Medicine Gastroenterology; ADMIT Family Medicine; ATTEND Family Medicine
PROC: 0D748ZZ Dilation of Esophagogastric Junction, Via Natural or Artificial Opening Endoscopic (ICD-10-PCS; 2020-02-18)
PROC: 0DB68ZX Excision of Stomach, Via Natural or Artificial Opening Endoscopic, Diagnostic (ICD-10-PCS; principal; 2020-02-18 13:45)
DX: I11.0 Hypertensive heart disease with heart failure (principal); J96.21 Acute and chronic respiratory failure with hypoxia; J44.1 Chronic obstructive pulmonary disease with (acute) exacerbation; F17.213 Nicotine dependence, cigarettes, with withdrawal; N17.9 Acute kidney failure, unspecified; I50.23 Acute on chronic systolic (congestive) heart failure; I34.0 Nonrheumatic mitral (valve) insufficiency; R13.10 Dysphagia, unspecified; R12 Heartburn; K21.0 Gastro-esophageal reflux disease with esophagitis; K22.2 Esophageal obstruction; K29.70 Gastritis, unspecified, without bleeding; G47.00 Insomnia, unspecified

== ENCOUNTER 2020-10-19 00:45 | Inpatient (IN) | payer MEDICARE ==
[~2020-10-19] VITALS: Ht 157.5 cm; Wt 45.4 kg
[2020-10-19] VITALS (7 sets, daily range): BP systolic 31–143; BP diastolic 17–115; Ht 157.5 cm; Wt 45.4 kg
[~2020-10-19 00:45] MED LIST changes: +DALIRESP250 MCG PO; +K-DUR20 MEQ PO; +KEFLEX500 MG PO; +LASIX40 MG PO; +MACROBID100 MG PO; +PHENAZOPYRIDIN200 MG PO; +PROTONIX40 MG PO; +SINGULAIR10 MG PO; +TOPROL XL25 MG PO
--- NOTE | 2020-10-19 02:54 | NUR ---
PT STATES SHE FEELS LIKE SHE NEEDS TO VOID BUT HAS BEEN UNABLE. STATES SHE HAS NOT VOIDED IN 4 DAYS. BLADDER SCAN COMPLETED. SHOWS 98ML URINE IN BLADDER.
[2020-10-19 03:09] LABS: BASOPHILS 0.1 % (0-2); EOSINOPHILS 0.1 % (0-7); HEMATOCRIT 45.3 % (36.0-48.0); HEMOGLOBIN 14.5 g/dL (12-16); IMMATURE GRANULOCYTES 0.2 % (0-5); LYMPHOCYTE ABS# 1.24 10x3/uL (1.18-3.74); LYMPHOCYTES 12.7 % (15-50); MCH 28.1 pg (26.0-34.0); MCV 87.8 fL (80.0-100.0); MONOCYTES 6.2 % (2-11); NEUTROPHIL ABS# 7.89 10x3/uL (1.56-6.13); NEUTROPHILS 80.7 % (40-80); RBC 5.16 10x6/uL (4.00-5.40); WBC 9.8 10x3/uL (4.8-10.8)
[2020-10-19 03:20] LABS: PLATELET COUNT 328 10x3/uL (130-400)
[2020-10-19 03:32] LABS: ALBUMIN 3.6 g/dL (3.4-5.0); ANION GAP 25.9 mmol/L (8-16); BILIRUBIN - TOTAL 1.86 mg/dL (0.2-1.3); CALCIUM 9.2 mg/dL (8.5-10.1); CARBON DIOXIDE 13.6 mmol/L (21.0-32.0); CREATININE - SERUM 1.3 mg/dL (0.6-1.3); POTASSIUM - SERUM 5.5 mmol/L (3.5-5.1); PROTEIN - SERUM 7.5 g/dL (6.4-8.2)
[2020-10-19 03:49] LABS: TROPONIN-I 0.028 ng/mL (0.000-0.060)
[2020-10-19 04:50] LABS: APTT 31.6 SECONDS (22.8-39.4); INR 1.73 (0.85-1.17); PROTIME 18.8 SECONDS (11.6-15.0)
[2020-10-19 04:55] LABS: INFLUENZA TYPE A NEGATIVE (NEGATIVE); INFLUENZA TYPE B NEGATIVE (NEGATIVE); SARS-CoV-2 ANTIGEN NEGATIVE- SARS-COV-2 (NEGATIVE)
[2020-10-19 05:08] LABS: CKMB 4.1 U/L (0.0-3.6); MAGNESIUM - SERUM 2.1 mg/dL (1.8-2.4); PRO BNP 21506 pg/mL (0-450); THYROID STIMULATING HORMONE 8.48 uIU/mL (0.36-3.74)
--- NOTE | 2020-10-19 06:47 | NUR ---
AT 0525 PT CALLED THIS NURSE TO ROOM REQUESTING SOMETHING FOR ACID REFLUX. ORDER WAS OBTAINED FOR MEDICATION AND THIS NURSE RETURNED TO ROOM TO INFORM PT THAT ANOTHER NURSE HAD WENT TO GET THE MEDICATION. PT ASKED THIS NURSE TO RUB BACK WHILE PT SAT ON SIDE OF BED. THIS NURSE ASKED PT IF PT WAS HAVING OTHER PROBLEMS OR IF IT WAS JUST ACID REFLUX.PT DENIES OTHER PROBLEMS. AT 0540 PT STATED, " I FEEL LIKE I AM GOING TO PASS OUT." THIS NURSE ASKED FOR ASSISTANCE TO ROOM. PT BEGAN TO SHOW WORSENING RESPIRATORY DEPRESSION AT THIS TIME. AT 0543 DR. BAEZ WAS AT BEDSIDE. PT WAS UNABLE TO MAINTAIN O2 AT THIS TIME. THIS NURSE BEGAN BAGGING PATIENT. PT DETERIORATED AND PT WAS INTUBATED AT 0555. CPR WAS INITIATED AT THIS TIME. AT 0606 ROSC, PT MOVED TO TRAUMA ROOM. PT THEN AGAIN WAS UNABLE TO MAINTAIN HEART RATE AND CPR WAS INITIATED AT 0616. TOD WAS CALLED BY DR. BAEZ AT 0625. PT SISTER CONTACTED: MIREYA BEAVER. DAUGHTER CONTACT INFORMATION WAS PROVIDED FROM MIREYA. DAUGHTER TYSON BLUM CONTACT INFORMATION [phone]. DAUGHTER AND SISTER INFORMED PER JAZMÍN GARCIA. DAUGHTER UNABLE TO PROVIDED HOME AT THIS TIME. BELONGINGS WERE SECURED WITH A WITNESS OF AJZMÍN GARCIA. BESIDES PT CLOTHING PT HAD A BROWN PURSE WITH A COIN PURSE INSIDE WITH $187.00 IN ODOM AND @9.25 IN CHANGE, ALONG WITH A PURSE.
[2020-10-19 07:41] LABS: AMORPHOUS SEDIMENT >1+ LPF (NONE SEEN); BACTERIA FEW HPF (NONE SEEN); BILIRUBIN NEGATIVE (NEGATIVE); KETONE NEGATIVE (NEGATIVE); NITRITE NEGATIVE (NEGATIVE); SQUAMOUS EPITHELIAL NONE SEEN HPF (0-4); WHITE CELLS - URINE RARE HPF (0-4)
--- NOTE | 2020-10-19 08:19 | NUR ---
FAMILY CALLED AND GAVE NAME OF HOME TO BE CONTACTED - [facility] [place]. DAUGHTER, TYSON, STATES SHE WILL COME AND REGISTERED PRIVATE DUTY NURSE THE PATIENT'S BELONGINGS TODAY.
--- NOTE | 2020-10-19 08:58 | NUR ---
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 RELEASE SIGNED BY QUALITY IMPROVEMENT ENGINEER.
== END 2020-10-19 14:10 | DRG 871 ==
LOC: D.ER 00:45 → D.EDHOLD 02:55 → D.M2 02:55 → D.EDHOLD 06:00
PROVIDERS: Emergency Medicine; ADMIT Emergency Medicine; ATTEND Emergency Medicine
PROC: 0BH17EZ Insertion of Endotracheal Airway into Trachea, Via Natural or Artificial Opening (ICD-10-PCS; principal; 2020-10-19)
PROC: 5A1935Z Respiratory Ventilation, Less than 24 Consecutive Hours (ICD-10-PCS; 2020-10-19)
PROC: 5A12012 Performance of Cardiac Output, Single, Manual (ICD-10-PCS; 2020-10-19)
DX: A41.9 Sepsis, unspecified organism (principal); R65.21 Severe sepsis with septic shock; J44.1 Chronic obstructive pulmonary disease with (acute) exacerbation; Z91.19 Patient's noncompliance with other medical treatment and regimen; E87.5 Hyperkalemia; R00.1 Bradycardia, unspecified; I46.9 Cardiac arrest, cause unspecified; I50.9 Heart failure, unspecified